=== PATIENT | male | born 1945 | race Caucasian/White ===

== ENCOUNTER 2016-09-07 13:41 | Emergency (ER) | payer MEDICARE, OTHER ==
[~2016-09-07] VITALS: Ht 172.7 cm; Wt 126.0 kg
[~2016-09-07 13:41] MED LIST: ACET-784 PO; ADV250 IH; ASPI81TA2 PO; BISA10S PR; CLOP75 PO; DIVA500T35 PO; FOLI1TAB15 PO; LOPE2 PO; MEDR10TA PO; METF500T4 PO; MILK OF MAGNESIA PO; MULTIVITAMIN PO; NAPR-58 PO; PARO20TA24 PO; RISP1 PO; SYNTHROID PO; THIA100 PO
[2016-09-07] MEDS ORDERED: DSS100 PO (15:27)
[2016-09-07] MEDS ORDERED: [UNRECOGNIZED DRUG - CODE] SQ (15:27)
[2016-09-07] MEDS ORDERED: GLIP5 PO (15:27)
[2016-09-07] MEDS ORDERED: CLOT15CR4 TP (15:27)
[2016-09-07] MEDS ORDERED: MAGN200T4 PO (15:27)
[2016-09-07] MEDS ORDERED: HYDR28.462 TP (15:27)
[2016-09-07] MEDS ORDERED: CYAN500 PO (15:27)
[2016-09-07] MEDS ORDERED: INSLAN SQ (15:27)
[2016-09-07] MEDS ORDERED: INSU100C14 SQ (15:27)
[2016-09-07] MEDS ORDERED: OMEP20 PO (15:31)
[2016-09-07] MEDS ORDERED: SIMV-260 PO (15:31)
[2016-09-07] MEDS ORDERED: LIRA0.6P SQ (15:31)
[2016-09-07] MEDS ORDERED: NIAC250C2 PO (15:31)
[2016-09-07] MEDS ORDERED: AMLO-512 PO (15:31)
[2016-09-07] MEDS ORDERED: LEVO150 PO (15:31)
[2016-09-07 15:35] VITALS: BP 110/67
[2016-09-07] MEDS ORDERED: HYDROCODONE/ACETAMINOPHEN 5-325 MG TABLET PO ONE (17:00)
[2016-09-07] MEDS ORDERED: LORazepam 2 MG TABLET PO ONE (17:00)
== END 2016-09-07 17:41 | disposition home or self-care (01) ==
LOC: EMS 13:43
DX: F41.9 Anxiety disorder, unspecified (principal); R51 Headache; F32.9 Major depressive disorder, single episode, unspecified; E11.9 Type 2 diabetes mellitus without complications; I10 Essential (primary) hypertension; E03.9 Hypothyroidism, unspecified; K21.9 Gastro-esophageal reflux disease without esophagitis; Z79.4 Long term (current) use of insulin
CPT/HCPCS: 82962; 99284

== ENCOUNTER 2022-06-06 00:38 | Emergency (ER) | payer MEDICARE, OTHER ==
[~2022-06-06] VITALS: Ht 172.7 cm; Wt 134.0 kg
[~2022-06-06 00:38] MED LIST changes: -ACET-784 PO; -ADV250 IH; +AMLO-258 PO; +ASPI-1198 PO; -ASPI81TA2 PO; -BISA10S PR; +BISA10SU11 PR; -CLOP75 PO; +CLOT15CR4 TP; +CYAN500T56 PO; +DIVA-112 PO; -DIVA500T35 PO; +DSS100 PO; -FOLI1TAB15 PO; +GLIP5TAB12 PO; +HYDR28.462 TP; +INSLAN SQ; +INSU100C14 SQ; +LEVO150 PO; +LIRA0.6P SQ; -LOPE2 PO; +MAGN200T4 PO; -MEDR10TA PO; +METF-1211 PO; -METF500T4 PO; -MILK OF MAGNESIA PO; -NAPR-58 PO; +NIAC250C16 PO; +OMEP20 PO; -PARO20TA24 PO; -RISP1 PO; +SIMV-260 PO; -SYNTHROID PO; -THIA100 PO; +[UNRECOGNIZED DRUG - CODE] SQ
[2022-06-06 01:49] LABS: BASOPHILS % (AUTO) 0.8 % (0.0-2.0); EOSINOPHILS % (AUTO) 6.6 % (1.0-6.0); HEMATOCRIT 38.8 % (41-53); HEMOGLOBIN 13.4 g/dL (13.5-17.5); LYMPHOCYTES # (AUTO) 1.3 K/uL (1.0-4.8); LYMPHOCYTES % (AUTO) 27.3 % (22.0-44.0); MEAN CORPUSCULAR HGB CONC 34.4 G/dL (31.0-37.0); MEAN CORPUSCULAR VOLUME 113 fL (80-100); MONOCYTES # (AUTO) 0.5 K/uL (0.1-1.0); MONOCYTES % (AUTO) 11.6 % (2.0-9.0); NEUTROPHILS # (AUTO) 2.5 K/uL (1.8-7.7); NEUTROPHILS % (AUTO) 53.7 % (40.0-70.0); PLATELET COUNT (AUTO) 119 K/uL (150-450); RED BLOOD CELL COUNT(AUTO) 3.42 MIL/uL (4.50-5.90)
[2022-06-06 01:57] LABS: ANION GAP -1 mmol/L (8-16); CALCIUM, TOTAL 8.7 mg/dL (8.8-10.5); CARBON DIOXIDE 39 mmol/L (22-29); CHLORIDE 96 mmol/L (98-107); CREATININE 0.91 mg/dL (0.60-1.30); GLUCOSE,RANDOM 155 mg/dL (70-110); SODIUM SERUM 134 mmol/L (136-145); UREA NITROGEN, BLOOD 11 mg/dL (7-18)
[2022-06-06 01:59] LABS: GLOMERULAR FILTR. RATE CALC > 60 mL/min (>60)
[2022-06-06 02:03] LABS: ALANINE AMINOTRANSFERASE 22 U/L (12-78); ALBUMIN 2.2 g/dL (3.4-5.0); ALKALINE PHOSPHATASE 175 U/L (46-116); ASPARTATE AMINOTRANSFERASE 28 U/L (15-37); BILIRUBIN,TOTAL 1.1 mg/dL (0.1-1.0); TOTAL PROTEIN, SERUM 6.5 g/dL (6.4-8.2)
[2022-06-06 02:11] LABS: B-TYPE NATRIURETIC PEPTIDE 94 pg/mL (0-100)
[2022-06-06 02:12] LABS: COVID AG,FIA SOURCE NASAL SWAB
[2022-06-06 05:31] LABS: ABG BASE EXCESS 11.4 mmol/L (-2.0-3.0); ABG CARBOXYHEMOGLOBIN 1.7 % (0.0-1.5); ABG HCO3 32.5 mmol/L (22.0-26.0); ABG METHEMOGLOBIN 0.4 % (0.0-1.5); ABG OXYGEN CONTENT 18.1 mL/dL (15.0-23.0); ABG OXYGEN SATURATION 92.7 % (95.0-98.0); ABG OXYHEMOGLOBIN 90.8 % (94.0-100.0); ABG PCO2 66 mmHg (35-45); ABG PH 7.366 (7.35-7.450); ABG TOTAL HEMOGLOBIN 14.2 G/dL (12.0-18.0); PO2, ARTERIAL BG 66.3 mmHg (75.0-83.0); SOURCE, BLOOD GAS ARTERIAL; TEMPERATURE, FAHRENHEIT, BG 98.5 FAHREN (96.0-98.6)
[2022-06-06 05:32] LABS: ABG A-A DIFF O2 26.9 mmHg (10-20.0); O2 DEVICE,BLOOD GAS NASAL CANNULA (ROOM AIR); SITE, BLOOD GAS LFT RADIAL
[2022-06-06] MEDS ORDERED: ALBUTEROL SULFATE HFA 90 MCG/PUFF 8 GM INHALER IH ONE (06:30)
[2022-06-06 06:40] VITALS: BP 133/57
== END 2022-06-06 09:02 | disposition home or self-care (01) ==
LOC: EMS 00:39
DX: F41.9 Anxiety disorder, unspecified (principal); J44.9 Chronic obstructive pulmonary disease, unspecified; G47.30 Sleep apnea, unspecified; F32.A Depression, unspecified; E11.9 Type 2 diabetes mellitus without complications; I10 Essential (primary) hypertension; E03.9 Hypothyroidism, unspecified; Z87.19 Personal history of other diseases of the digestive system; Z20.822 Contact with and (suspected) exposure to COVID-19
CPT/HCPCS: 36600; 71045; 80053; 82805; 83880; 84484; 85025; 93005; 94640; 99285; J3535; 36415-L1; 36415-TC

== ENCOUNTER 2022-10-21 18:58 | Inpatient (IN) | payer MEDICARE, OTHER ==
[~2022-10-21] VITALS: Ht 175.3 cm; Wt 117.0 kg
[2022-10-21] MEDS ORDERED: NALOXONE HCL 1 MG/ML 2 ML SYRINGE IVP ONE ×2 (19:00→20:45)
[2022-10-21] MEDS ORDERED: IOHEXOL 350 MG/ML 100 ML VIAL ONE (19:07)
[2022-10-21] MEDS ORDERED: SODIUM CHLORIDE 0.9% 100 ML ONE (19:07)
[2022-10-21] MEDS ORDERED: MAGN400T57 PO (19:08)
[2022-10-21] MEDS ORDERED: DIVA-111 PO (19:08)
[2022-10-21] MEDS ORDERED: DOCU-385 PO (19:08)
[2022-10-21] MEDS ORDERED: HEPA500018 SQ (19:08)
[2022-10-21] MEDS ORDERED: MULT-660 PO (19:08)
[2022-10-21] MEDS ORDERED: NIAC500C13 PO (19:08)
[2022-10-21] MEDS ORDERED: CLOT15CR5 TP (19:08)
[2022-10-21 19:29] LABS: BASOPHILS % (AUTO) 0.7 % (0.0-2.0); EOSINOPHILS % (AUTO) 2.8 % (1.0-6.0); HEMATOCRIT 42.3 % (41-53); HEMOGLOBIN 14.5 g/dL (13.5-17.5); LYMPHOCYTES # (AUTO) 0.8 K/uL (1.0-4.8); LYMPHOCYTES % (AUTO) 19.7 % (22.0-44.0); MEAN CORPUSCULAR HEMOGLOBIN 38.6 pg (26.0-34.0); MEAN CORPUSCULAR HGB CONC 34.4 G/dL (31.0-37.0); MEAN CORPUSCULAR VOLUME 112 fL (80-100); MONOCYTES # (AUTO) 0.4 K/uL (0.1-1.0); MONOCYTES % (AUTO) 9.6 % (2.0-9.0); NEUTROPHILS # (AUTO) 2.6 K/uL (1.8-7.7); NEUTROPHILS % (AUTO) 67.2 % (40.0-70.0); PLATELET COUNT (AUTO) 119 K/uL (150-450); RED BLOOD CELL COUNT(AUTO) 3.77 MIL/uL (4.50-5.90); RED CELL DISTRIBUTION WIDTH 15.8 % (11.5-14.5)
[2022-10-21 19:42] LABS: PHOSPHORUS 3.8 mg/dL (2.5-4.9)
[2022-10-21 19:44] LABS: INR 1.1 (0.9-1.1); PROTHROMBIN TIME 11.3 SEC (9.4-11.6)
[2022-10-21] MEDS ORDERED: LevETIRAcetam 1,000 MG in DEXTROSE 5%-WATER 100 ML IV ONE (19:45)
[2022-10-21 19:54] LABS: AMMONIA 82 umol/L (11-32)
[2022-10-21 19:56] LABS: COVID AG,FIA SOURCE NASOPHARYNGEAL
[2022-10-21] MEDS ORDERED: SODIUM CHLORIDE 0.9% 1,000 ML IV ONE (20:30)
[2022-10-21] MEDS ORDERED: LORazepam 2 MG/ML VIAL IVP ONE (20:30)
[2022-10-21 20:47] LABS: APPEARANCE,URINE CLEAR (CLEAR); BILIRUBIN,URINE NEGATIVE (NEGATIVE); GLUCOSE, URINE (UA) NEGATIVE (NEGATIVE); KETONES,URINE NEGATIVE (NEGATIVE); LEUKOCYTE ESTERASE ,URINE MODERATE (NEGATIVE); NITRATE,URINE NEGATIVE (NEGATIVE); OCCULT BLOOD,URINE NEGATIVE (NEGATIVE); PH,URINE 5.5 (5.0-8.0); PROTEIN,URINE 100-200,SEE CONFIRM mg/dL (NEGATIVE); UROBILINOGEN,URINE <=1.0 mg/dL (<=1.0)
[2022-10-21 20:54] LABS: AMPHET/METH SCREEN,URINE NEGATIVE (NEGATIVE); BARBITURATE SCREEN, URINE NEGATIVE (NEGATIVE); BENZODIAZEPINES SCREEN,URINE NEGATIVE (NEGATIVE); CANNABINOID SCREEN,URINE NEGATIVE (NEGATIVE); COCAINE SCREEN,URINE NEGATIVE (NEGATIVE); METHADONE SCREEN, URINE NEGATIVE (NEGATIVE); OPIATE SCREEN,URINE POSITIVE (NEGATIVE); PHENCYCLIDINE SCREEN,URINE NEGATIVE (NEGATIVE)
[2022-10-21] MEDS ORDERED: ETOMIDATE 2 MG/ML 10 ML VIAL IVP ONE (21:00)
[2022-10-21] MEDS ORDERED: ROCURONIUM BROMIDE 10 MG/ML 5 ML VIAL IVP ONE (21:00)
[2022-10-21 21:01] LABS: SULFOSALICYLIC ACID,URINE 2+ (Negative)
[2022-10-21 21:01] LABS: ALANINE AMINOTRANSFERASE 26 U/L (12-78); ALBUMIN 2.9 g/dL (3.4-5.0); ALKALINE PHOSPHATASE 259 U/L (46-116); ANION GAP 5 mmol/L (8-16); ASPARTATE AMINOTRANSFERASE 37 U/L (15-37); BILIRUBIN,TOTAL 1.5 mg/dL (0.1-1.0); CALCIUM, TOTAL 8.3 mg/dL (8.8-10.5); CARBON DIOXIDE 30 mmol/L (22-29); CHLORIDE 85 mmol/L (98-107); CREATININE 0.78 mg/dL (0.60-1.30); GLOMERULAR FILTR. RATE CALC > 60 mL/min (>60); GLUCOSE,RANDOM 219 mg/dL (70-110); POTASSIUM 3.6 mmol/L (3.5-5.1); TOTAL PROTEIN, SERUM 8.1 g/dL (6.4-8.2); UREA NITROGEN, BLOOD 10 mg/dL (7-18)
[2022-10-21 21:02] LABS: BACTERIA,URINE Many /HPF (None Seen); RBC,URINE 0-2 /HPF (0-2); SQUAMOUS EPITHELIAL CELL,UR Few /LPF (None Seen)
[2022-10-21 21:03] LABS: SODIUM SERUM 120 mmol/L (136-145)
[2022-10-21] MEDS ORDERED: ONDANSETRON HCL 4 MG/2 ML VIAL IVP PRN (21:15)
[2022-10-21] MEDS: PROPOFOL 1000 MG/ISO-OSM 100 ML IV PRN (21:29)
[2022-10-21] MEDS ORDERED: AZITHROMYCIN 500 MG/NS 250 ML IV ONE (21:30)
[2022-10-21] MEDS ORDERED: VANCOMYCIN 1GM/WATER(PEG/NADA) 200 ML IV ONE (21:30)
[2022-10-21] MEDS ORDERED: PIPERACILLIN/TAZO 3.375 GM/D5W 50 ML IV ONE (21:30)
[2022-10-21] MEDS ORDERED: DEXTROSE 50%-WATER 25 GM/50 ML SYRINGE IVP PRN (21:45)
[2022-10-21] MEDS ORDERED: BISACODYL 10 MG RECTAL RECTAL SUPPOSITORY PR PRN (21:45)
[2022-10-21] MEDS ORDERED: OXCA300T28 PO (21:59)
[2022-10-21] MEDS ORDERED: LACTULOSE 200 GM/300 ML RECTAL SOLUTION PR ONE (22:00)
[2022-10-21 22:12] LABS: ABG BASE EXCESS -3.7 mmol/L (-2.0-3.0); ABG HCO3 20.8 mmol/L (22.0-26.0); ABG METHEMOGLOBIN 0.3 % (0.0-1.5); ABG OXYHEMOGLOBIN 95.7 % (94.0-100.0); ABG PCO2 55 mmHg (35-45); ABG PH 7.247 (7.35-7.450); ABG TOTAL HEMOGLOBIN 14.8 G/dL (12.0-18.0); PO2, ARTERIAL BG 111.2 mmHg (75.0-83.0); SOURCE, BLOOD GAS ARTERIAL; TEMPERATURE, FAHRENHEIT, BG 97.6 FAHREN (96.0-98.6)
[2022-10-21 22:13] LABS: ABG A-A DIFF O2 256.6 mmHg (10-20.0); O2 DEVICE,BLOOD GAS VENTILATOR (ROOM AIR); PEEP,BG 5 cm H2O; SITE, BLOOD GAS LFT BRACHIAL; SPONTANEOUS VT, BG 503 ml; VT, ABG 500 ml
[2022-10-21 22:30] LABS: THYROID STIMULATING HORMONE 7.92 uIU/mL (0.36-3.74)
[2022-10-21 22:46] LABS: LACTIC ACID 2.7 mmol/L (0.4-2.0)
[2022-10-21] MEDS ORDERED: PANT-31 PO (22:54)
[2022-10-21] MEDS ORDERED: ALLO100T50 PO (22:54)
[2022-10-21] MEDS ORDERED: GARL1000 PO (22:54)
[2022-10-21] MEDS ORDERED: ZIPR80CA9 PO (22:54)
[2022-10-21] MEDS ORDERED: MAGN-169 PO (22:54)
[2022-10-21] MEDS ORDERED: NA P133E4 PR (22:54)
[2022-10-21] MEDS ORDERED: OXCA150T28 PO (22:54)
[2022-10-21] MEDS ORDERED: INSU100V SQ (22:54)
[2022-10-21] MEDS ORDERED: CALC-1105 PO (22:54)
[2022-10-21] MEDS ORDERED: PSYL575P22 PO (22:54)
[2022-10-21] MEDS ORDERED: ACET-66 PO (22:54)
[2022-10-21] MEDS ORDERED: ASCO500 PO (22:54)
[2022-10-21] MEDS ORDERED: MULT-248 PO (22:54)
[2022-10-21] MEDS ORDERED: VITA400T9 PO (22:54)
[2022-10-21] MEDS ORDERED: CHOL25TA4 PO (22:54)
[2022-10-21] MEDS ORDERED: CYAN250014 PO (22:54)
[2022-10-21] MEDS ORDERED: MELA5TAB21 PO (22:54)
[2022-10-21] MEDS ORDERED: LEVE500T8 PO (22:54)
[2022-10-21] MEDS ORDERED: ASPI-1444 PO (22:54)
[2022-10-21] MEDS ORDERED: HYDR-4723 PO (22:54)
[2022-10-21] MEDS ORDERED: LEVO112T4 PO (22:54)
[2022-10-22] MEDS ORDERED: SODIUM CHLORIDE 0.9% 250 ML IV ONE (00:30)
[2022-10-22] MEDS ORDERED: NOREPINEPHRINE 8 MG/D5%-WATER 250 ML IV ONE (00:35)
[2022-10-22 00:40] LABS: ANION GAP 7 mmol/L (8-16); CALCIUM, TOTAL 7.3 mg/dL (8.8-10.5); CARBON DIOXIDE 26 mmol/L (22-29); CHLORIDE 92 mmol/L (98-107); CREATININE 0.78 mg/dL (0.60-1.30); GLOMERULAR FILTR. RATE CALC > 60 mL/min (>60); GLUCOSE,RANDOM 220 mg/dL (70-110); POTASSIUM 4.6 mmol/L (3.5-5.1); SODIUM SERUM 125 mmol/L (136-145); UREA NITROGEN, BLOOD 10 mg/dL (7-18)
[2022-10-22] MEDS: NOREPINEPHRINE BITARTRATE 16 MG in DEXTROSE 5%-WATER 234 ML IV PRN ×2 (00:44→17:04)
[2022-10-22] MEDS: INSULIN GLARGINE,HUM.REC.ANLOG 100 UNITS/ML SQ SCH ×2 (00:50→20:54)
[2022-10-22 01:01] LABS: GLUCOSE,POINT OF CARE 191 MG/DL (70-110)
[2022-10-22] MEDS ORDERED: PIPERACILLIN/TAZO 3.375 GM/D5W 50 ML IV SCH (04:00)
[2022-10-22] MEDS: PROPOFOL 1000 MG/ISO-OSM 100 ML IV PRN ×5 (04:11→23:30)
[2022-10-22 04:19] LABS: ABG BASE EXCESS 0.9 mmol/L (-2.0-3.0); ABG CARBOXYHEMOGLOBIN 1.4 % (0.0-1.5); ABG HCO3 25.7 mmol/L (22.0-26.0); ABG METHEMOGLOBIN 0.2 % (0.0-1.5); ABG OXYGEN SATURATION 95.7 % (95.0-98.0); ABG OXYHEMOGLOBIN 94.2 % (94.0-100.0); ABG PCO2 34 mmHg (35-45); ABG PH 7.477 (7.35-7.450); ABG TOTAL HEMOGLOBIN 13.6 G/dL (12.0-18.0); PO2, ARTERIAL BG 71.8 mmHg (75.0-83.0); SOURCE, BLOOD GAS ARTERIAL; TEMPERATURE, FAHRENHEIT, BG 98.5 FAHREN (96.0-98.6)
[2022-10-22 04:20] LABS: ABG A-A DIFF O2 174.6 mmHg (10-20.0); O2 DEVICE,BLOOD GAS VENTILATOR (ROOM AIR); PEEP,BG 5 cm H2O; SITE, BLOOD GAS LFT BRACHIAL; VT, ABG 500 ml
[2022-10-22 04:21] LABS: SPONTANEOUS VT, BG 485 ml
[2022-10-22] MEDS ORDERED: *CLINICAL-CEFEPIME DOSING CLINICAL ONE (04:30)
[2022-10-22] MEDS ORDERED: SODIUM CHLORIDE 0.9% 1,000 ML IV SCH (04:45)
[2022-10-22 04:51] LABS: ANION GAP 11 mmol/L (8-16); CALCIUM, TOTAL 7.5 mg/dL (8.8-10.5); CARBON DIOXIDE 21 mmol/L (22-29); CHLORIDE 95 mmol/L (98-107); CREATININE 0.62 mg/dL (0.60-1.30); GLOMERULAR FILTR. RATE CALC > 60 mL/min (>60); GLUCOSE,RANDOM 194 mg/dL (70-110); POTASSIUM 4.3 mmol/L (3.5-5.1); SODIUM SERUM 127 mmol/L (136-145); UREA NITROGEN, BLOOD 9 mg/dL (7-18)
[2022-10-22 05:33] LABS: BASOPHILS % (AUTO) 0.4 % (0.0-2.0); EOSINOPHILS % (AUTO) 0.3 % (1.0-6.0); HEMATOCRIT 39.3 % (41-53); HEMOGLOBIN 13.4 g/dL (13.5-17.5); LYMPHOCYTES # (AUTO) 0.8 K/uL (1.0-4.8); LYMPHOCYTES % (AUTO) 6.8 % (22.0-44.0); MEAN CORPUSCULAR VOLUME 112 fL (80-100); MONOCYTES # (AUTO) 1.3 K/uL (0.1-1.0); MONOCYTES % (AUTO) 11.7 % (2.0-9.0); NEUTROPHILS # (AUTO) 9.1 K/uL (1.8-7.7); NEUTROPHILS % (AUTO) 80.8 % (40.0-70.0); PLATELET COUNT (AUTO) 164 K/uL (150-450); RED BLOOD CELL COUNT(AUTO) 3.51 MIL/uL (4.50-5.90); RED CELL DISTRIBUTION WIDTH 15.5 % (11.5-14.5)
[2022-10-22 06:00] VITALS: BP 113/48
[2022-10-22] MEDS: LEVOTHYROXINE SODIUM 150 MCG TABLET PO SCH (06:30)
[2022-10-22] MEDS ORDERED: MAGNESIUM SULFATE 2 GM/WATER 50 ML IV ONE (07:00)
[2022-10-22 08:00] VITALS: BP 90/45
[2022-10-22] MEDS ORDERED: VANCOMYCIN HCL 1.5 GM in DEXTROSE 5%-WATER 250 ML IV SCH (08:00)
[2022-10-22] MEDS: OMEPRAZOLE 20 MG CAPSULE PO SCH (09:00)
[2022-10-22] MEDS ORDERED: DIVALPROEX SODIUM 250 MG DR TABLET PO SCH (09:00)
[2022-10-22] MEDS: MAGNESIUM OXIDE 400 MG TABLET PO SCH (09:08)
[2022-10-22] MEDS: CEFEPIME HCL 2 GM in DEXTROSE 5%-WATER 50 ML IV SCH ×2 (09:09→16:12)
[2022-10-22] MEDS: DOCUSATE SODIUM 100 MG CAPSULE PO SCH (09:09)
[2022-10-22] MEDS: CLOTRIMAZOLE 1%/BETAMETH DIP 0.05% 15 GM CREAM TP SCH (09:09)
[2022-10-22] MEDS: ASPIRIN 81 MG CHEWABLE TABLET PO SCH (09:09)
[2022-10-22] MEDS: CHLORHEXIDINE GLUCONATE 0.12% 15 ML UDCUP ORAL RINSE MM SCH ×2 (09:09→20:52)
[2022-10-22] MEDS ORDERED: OXCA300T70 PO (10:54)
[2022-10-22 12:00] VITALS: BP 100/38
[2022-10-22 16:00] VITALS: BP 108/43
[2022-10-22] MEDS: VANCOMYCIN HCL 1.25 GM in DEXTROSE 5%-WATER 250 ML IV SCH (16:12)
[2022-10-22] MEDS ORDERED: FentaNYL CIT 1000MCG/0.9% NACL 100 ML IV PRN (17:30)
[2022-10-22] MEDS: LevETIRAcetam 1,000 MG in DEXTROSE 5%-WATER 100 ML IV SCH (17:44)
[2022-10-22 18:01] LABS: GLUCOSE,POINT OF CARE 115 MG/DL (70-110)
[2022-10-22 20:00] VITALS: BP 145/52
[2022-10-22] MEDS: SIMVASTATIN 20 MG TABLET PO SCH (20:52)
[2022-10-22] MEDS: NIACIN 500 MG PO SCH (21:00)
[2022-10-23] VITALS: BP 100/31
[2022-10-23] MEDS ORDERED: SODIUM CHLORIDE 0.9% 250 ML IV ONE ×2 (00:24→23:26)
[2022-10-23] MEDS: VANCOMYCIN HCL 1.25 GM in DEXTROSE 5%-WATER 250 ML IV SCH ×4 (00:27→23:28)
[2022-10-23] MEDS: HEPARIN SODIUM,PORCINE 5,000 UNITS/ML VIAL SQ SCH ×4 (00:27→23:28)
[2022-10-23] MEDS: CEFEPIME HCL 2 GM in DEXTROSE 5%-WATER 50 ML IV SCH ×4 (00:28→23:28)
[2022-10-23] MEDS: INSULIN LISPRO 100 UNITS/ML SQ PRN ×3 (00:29→12:53)
[2022-10-23 04:00] VITALS: BP 122/60
[2022-10-23 05:54] LABS: BASOPHILS % (AUTO) 0.3 % (0.0-2.0); EOSINOPHILS % (AUTO) 2.1 % (1.0-6.0); HEMATOCRIT 38.6 % (41-53); HEMOGLOBIN 13.2 g/dL (13.5-17.5); LYMPHOCYTES # (AUTO) 1.2 K/uL (1.0-4.8); LYMPHOCYTES % (AUTO) 10.5 % (22.0-44.0); MEAN CORPUSCULAR HEMOGLOBIN 38.1 pg (26.0-34.0); MEAN CORPUSCULAR HGB CONC 34.3 G/dL (31.0-37.0); MEAN CORPUSCULAR VOLUME 111 fL (80-100); MONOCYTES # (AUTO) 1.6 K/uL (0.1-1.0); MONOCYTES % (AUTO) 13.7 % (2.0-9.0); NEUTROPHILS # (AUTO) 8.5 K/uL (1.8-7.7); NEUTROPHILS % (AUTO) 73.4 % (40.0-70.0); PLATELET COUNT (AUTO) 200 K/uL (150-450); RED BLOOD CELL COUNT(AUTO) 3.47 MIL/uL (4.50-5.90); RED CELL DISTRIBUTION WIDTH 15.6 % (11.5-14.5)
[2022-10-23 06:25] LABS: ANION GAP 8 mmol/L (8-16); CALCIUM, TOTAL 7.8 mg/dL (8.8-10.5); CARBON DIOXIDE 26 mmol/L (22-29); CHLORIDE 100 mmol/L (98-107); CREATININE 0.65 mg/dL (0.60-1.30); GLOMERULAR FILTR. RATE CALC > 60 mL/min (>60); GLUCOSE,RANDOM 169 mg/dL (70-110); SODIUM SERUM 134 mmol/L (136-145); UREA NITROGEN, BLOOD 7 mg/dL (7-18); VANCOMYCIN,RANDOM 25.3 mcg/mL (25.0-50.0)
[2022-10-23] MEDS: LevETIRAcetam 1,000 MG in DEXTROSE 5%-WATER 100 ML IV SCH ×2 (06:29→18:21)
[2022-10-23] MEDS: LEVOTHYROXINE SODIUM 150 MCG TABLET PO SCH (06:30)
[2022-10-23] MEDS: PROPOFOL 1000 MG/ISO-OSM 100 ML IV PRN ×3 (06:31→16:33)
[2022-10-23 07:01] LABS: GLUCOSE,POINT OF CARE 151 MG/DL (70-110)
[2022-10-23 07:01] LABS: GLUCOSE,POINT OF CARE 158 MG/DL (70-110)
[2022-10-23 08:00] VITALS: BP 121/40
[2022-10-23] MEDS ORDERED: FUROSEMIDE 20 MG/2 ML VIAL IVP ONE (08:00)
[2022-10-23] MEDS: CLOTRIMAZOLE 1%/BETAMETH DIP 0.05% 15 GM CREAM TP SCH (08:14)
[2022-10-23] MEDS: CHLORHEXIDINE GLUCONATE 0.12% 15 ML UDCUP ORAL RINSE MM SCH ×2 (08:15→20:49)
[2022-10-23] MEDS: ASPIRIN 81 MG CHEWABLE TABLET PO SCH (08:15)
[2022-10-23] MEDS: DOCUSATE SODIUM 100 MG CAPSULE PO SCH (08:17)
[2022-10-23] MEDS: MAGNESIUM OXIDE 400 MG TABLET PO SCH (08:17)
[2022-10-23] MEDS: OMEPRAZOLE 20 MG CAPSULE PO SCH (08:18)
[2022-10-23] MEDS: CIPROFLOXACIN HCL 0.3% 3.5 GM OPHTHALMIC OINTMENT OU SCH ×2 (10:00→20:49)
[2022-10-23 12:00] VITALS: BP 113/41
[2022-10-23 12:26] LABS: GLUCOSE,POINT OF CARE 159 MG/DL (70-110)
[2022-10-23 16:00] VITALS: BP 122/46
[2022-10-23 18:06] LABS: GLUCOSE,POINT OF CARE 144 MG/DL (70-110)
[2022-10-23 20:00] VITALS: BP 127/52
[2022-10-23] MEDS: SIMVASTATIN 20 MG TABLET PO SCH (20:49)
[2022-10-23] MEDS: INSULIN GLARGINE,HUM.REC.ANLOG 100 UNITS/ML SQ SCH (20:51)
[2022-10-23] MEDS: NIACIN 500 MG PO SCH (21:00)
[2022-10-24] VITALS: BP 145/84
[2022-10-24] MEDS: INSULIN LISPRO 100 UNITS/ML SQ PRN ×2 (00:05→18:14)
[2022-10-24] MEDS: PROPOFOL 1000 MG/ISO-OSM 100 ML IV PRN ×2 (02:10→12:29)
[2022-10-24 02:46] LABS: GLUCOSE,POINT OF CARE 145 MG/DL (70-110)
[2022-10-24] MEDS: NOREPINEPHRINE BITARTRATE 16 MG in DEXTROSE 5%-WATER 234 ML IV PRN (03:34)
[2022-10-24 04:00] VITALS: BP 112/48
[2022-10-24] MEDS: LEVOTHYROXINE SODIUM 150 MCG TABLET PO SCH (05:53)
[2022-10-24] MEDS: LevETIRAcetam 1,000 MG in DEXTROSE 5%-WATER 100 ML IV SCH ×2 (05:54→18:12)
[2022-10-24 06:19] LABS: ANION GAP 5 mmol/L (8-16); CALCIUM, TOTAL 7.8 mg/dL (8.8-10.5); CARBON DIOXIDE 29 mmol/L (22-29); CHLORIDE 100 mmol/L (98-107); CREATININE 0.72 mg/dL (0.60-1.30); GLOMERULAR FILTR. RATE CALC > 60 mL/min (>60); GLUCOSE,RANDOM 128 mg/dL (70-110); POTASSIUM 3.4 mmol/L (3.5-5.1); SODIUM SERUM 134 mmol/L (136-145); UREA NITROGEN, BLOOD 9 mg/dL (7-18)
[2022-10-24 08:00] VITALS: BP 119/46
[2022-10-24] MEDS: MAGNESIUM OXIDE 400 MG TABLET PO SCH (09:17)
[2022-10-24] MEDS: OMEPRAZOLE 20 MG CAPSULE PO SCH (09:17)
[2022-10-24] MEDS: ASPIRIN 81 MG CHEWABLE TABLET PO SCH (09:17)
[2022-10-24] MEDS: HEPARIN SODIUM,PORCINE 5,000 UNITS/ML VIAL SQ SCH ×2 (09:18→16:57)
[2022-10-24] MEDS: DOCUSATE SODIUM 100 MG CAPSULE PO SCH (09:18)
[2022-10-24] MEDS: CEFEPIME HCL 2 GM in DEXTROSE 5%-WATER 50 ML IV SCH ×2 (09:18→16:57)
[2022-10-24] MEDS: CHLORHEXIDINE GLUCONATE 0.12% 15 ML UDCUP ORAL RINSE MM SCH ×2 (09:18→21:06)
[2022-10-24] MEDS: CLOTRIMAZOLE 1%/BETAMETH DIP 0.05% 15 GM CREAM TP SCH (09:19)
[2022-10-24] MEDS: CIPROFLOXACIN HCL 0.3% 3.5 GM OPHTHALMIC OINTMENT OU SCH ×2 (09:19→21:05)
[2022-10-24] MEDS: VANCOMYCIN HCL 1.25 GM in DEXTROSE 5%-WATER 250 ML IV SCH ×2 (09:19→16:57)
[2022-10-24] MEDS ORDERED: DEXMEDETOMIDINE HCL 400 MCG in SODIUM CHLORIDE 0.9% 96 ML IV PRN (09:45)
[2022-10-24 10:31] LABS: GLUCOSE,POINT OF CARE 120 MG/DL (70-110)
[2022-10-24] MEDS ORDERED: POTASSIUM CHL 10 MEQ/WATER 50 ML IV PRN (11:45)
[2022-10-24] MEDS ORDERED: POTASSIUM CHLORIDE 20 MEQ ER TABLET PO PRN (11:45)
[2022-10-24 12:00] VITALS: BP 95/38
[2022-10-24] MEDS: POTASSIUM CHL 10 MEQ/WATER 50 ML IV SCH ×2 (12:27→13:54)
[2022-10-24 12:59] LABS: PHOSPHORUS 2.3 mg/dL (2.5-4.9)
[2022-10-24 13:36] LABS: GLUCOSE,POINT OF CARE 137 MG/DL (70-110)
[2022-10-24 16:00] VITALS: BP 123/49
[2022-10-24 16:17] LABS: ABG CARBOXYHEMOGLOBIN 1.8 % (0.0-1.5); ABG HCO3 25.5 mmol/L (22.0-26.0); ABG METHEMOGLOBIN 0.3 % (0.0-1.5); ABG OXYGEN CONTENT 18.3 mL/dL (15.0-23.0); ABG OXYGEN SATURATION 96.3 % (95.0-98.0); ABG OXYHEMOGLOBIN 94.3 % (94.0-100.0); ABG PCO2 37 mmHg (35-45); ABG PH 7.451 (7.35-7.450); ABG TOTAL HEMOGLOBIN 13.8 G/dL (12.0-18.0); PO2, ARTERIAL BG 79.5 mmHg (75.0-83.0); SOURCE, BLOOD GAS ARTERIAL; TEMPERATURE, FAHRENHEIT, BG 97.4 FAHREN (96.0-98.6)
[2022-10-24 16:18] LABS: O2 DEVICE,BLOOD GAS VENTILATOR (ROOM AIR); SITE, BLOOD GAS RT RADIAL
[2022-10-24 16:19] LABS: PEEP,BG 5 cm H2O; PRESSURE SUPPORT, BG 8 cm H2O; SPONTANEOUS VT, BG 412 ml; VENT MODE, BG Press. Support Vent. (ROOM AIR)
[2022-10-24] MEDS ORDERED: MAGNESIUM SULFATE 2 GM/WATER 50 ML IV ONE (18:00)
[2022-10-24 19:41] LABS: GLUCOSE,POINT OF CARE 142 MG/DL (70-110)
[2022-10-24 20:00] VITALS: BP 140/68
[2022-10-24 20:40] LABS: CREATININE,URINE RANDOM 23.8 mg/dL (30.0-125.0)
[2022-10-24] MEDS: ETHYL ALCOHOL 62% ANTISEPTIC NASAL SANITIZER 0.6 ML AMPUL NASAL SCH (21:05)
[2022-10-24] MEDS: NIACIN 500 MG PO SCH (21:06)
[2022-10-24] MEDS: SIMVASTATIN 20 MG TABLET PO SCH (21:06)
[2022-10-24] MEDS: INSULIN GLARGINE,HUM.REC.ANLOG 100 UNITS/ML SQ SCH (21:11)
[2022-10-25] VITALS: BP 118/49
[2022-10-25] MEDS: HEPARIN SODIUM,PORCINE 5,000 UNITS/ML VIAL SQ SCH ×4 (00:23→23:31)
[2022-10-25] MEDS: CEFEPIME HCL 2 GM in DEXTROSE 5%-WATER 50 ML IV SCH ×3 (00:23→17:15)
[2022-10-25] MEDS: VANCOMYCIN HCL 1.25 GM in DEXTROSE 5%-WATER 250 ML IV SCH (00:23)
[2022-10-25 04:00] VITALS: BP 102/43
[2022-10-25 06:01] LABS: ANION GAP 7 mmol/L (8-16); CALCIUM, TOTAL 7.9 mg/dL (8.8-10.5); CARBON DIOXIDE 24 mmol/L (22-29); CHLORIDE 103 mmol/L (98-107); GLOMERULAR FILTR. RATE CALC > 60 mL/min (>60); GLUCOSE,RANDOM 147 mg/dL (70-110); POTASSIUM 3.9 mmol/L (3.5-5.1); SODIUM SERUM 134 mmol/L (136-145); UREA NITROGEN, BLOOD 16 mg/dL (7-18); VANCOMYCIN,RANDOM 41.3 mcg/mL (25.0-50.0)
[2022-10-25] MEDS: LevETIRAcetam 1,000 MG in DEXTROSE 5%-WATER 100 ML IV SCH ×2 (06:28→17:15)
[2022-10-25] MEDS: LEVOTHYROXINE SODIUM 150 MCG TABLET PO SCH (06:28)
[2022-10-25] MEDS ORDERED: VANCOMYCIN 1GM/WATER(PEG/NADA) 200 ML IV PRN (07:30)
[2022-10-25 08:00] VITALS: BP 119/49
[2022-10-25 08:21] LABS: GLUCOSE,POINT OF CARE 102 MG/DL (70-110)
[2022-10-25 08:21] LABS: GLUCOSE,POINT OF CARE 124 MG/DL (70-110)
[2022-10-25] MEDS: ASPIRIN 81 MG CHEWABLE TABLET PO SCH (08:28)
[2022-10-25] MEDS: ETHYL ALCOHOL 62% ANTISEPTIC NASAL SANITIZER 0.6 ML AMPUL NASAL SCH ×2 (08:28→20:33)
[2022-10-25] MEDS: CHLORHEXIDINE GLUCONATE 0.12% 15 ML UDCUP ORAL RINSE MM SCH ×2 (08:29→20:33)
[2022-10-25] MEDS: OMEPRAZOLE 20 MG CAPSULE PO SCH (08:29)
[2022-10-25] MEDS: DOCUSATE SODIUM 100 MG CAPSULE PO SCH (08:29)
[2022-10-25] MEDS: PROPOFOL 1000 MG/ISO-OSM 100 ML IV PRN (08:30)
[2022-10-25] MEDS: CLOTRIMAZOLE 1%/BETAMETH DIP 0.05% 15 GM CREAM TP SCH (08:30)
[2022-10-25] MEDS: CIPROFLOXACIN HCL 0.3% 3.5 GM OPHTHALMIC OINTMENT OU SCH ×2 (08:31→20:34)
[2022-10-25 09:11] LABS: PHOSPHORUS 2.1 mg/dL (2.5-4.9)
[2022-10-25 09:37] LABS: BASOPHILS % (AUTO) 0.6 % (0.0-2.0); EOSINOPHILS % (AUTO) 3.1 % (1.0-6.0); HEMATOCRIT 38.8 % (41-53); HEMOGLOBIN 13.2 g/dL (13.5-17.5); LYMPHOCYTES # (AUTO) 1.7 K/uL (1.0-4.8); LYMPHOCYTES % (AUTO) 22.6 % (22.0-44.0); MEAN CORPUSCULAR HEMOGLOBIN 38.6 pg (26.0-34.0); MEAN CORPUSCULAR VOLUME 113 fL (80-100); MONOCYTES % (AUTO) 13.2 % (2.0-9.0); NEUTROPHILS # (AUTO) 4.5 K/uL (1.8-7.7); NEUTROPHILS % (AUTO) 60.5 % (40.0-70.0); PLATELET COUNT (AUTO) 133 K/uL (150-450); RED BLOOD CELL COUNT(AUTO) 3.42 MIL/uL (4.50-5.90)
[2022-10-25 12:00] VITALS: BP 102/45
[2022-10-25 14:41] LABS: GLUCOSE,POINT OF CARE 130 MG/DL (70-110)
[2022-10-25 16:00] VITALS: BP 112/52
[2022-10-25] MEDS ORDERED: SODIUM CHLORIDE 0.9% 500 ML IV ONE (17:15)
[2022-10-25 20:00] VITALS: BP 126/57
[2022-10-25 20:06] LABS: GLUCOSE,POINT OF CARE 124 MG/DL (70-110)
[2022-10-25] MEDS: SIMVASTATIN 20 MG TABLET PO SCH (20:33)
[2022-10-25] MEDS: NIACIN 500 MG PO SCH (20:33)
[2022-10-25] MEDS: INSULIN GLARGINE,HUM.REC.ANLOG 100 UNITS/ML SQ SCH (20:52)
[2022-10-25 21:11] LABS: GLUCOSE,POINT OF CARE 118 MG/DL (70-110)
[2022-10-26] VITALS: BP 124/52
[2022-10-26 00:16] LABS: GLUCOSE,POINT OF CARE 101 MG/DL (70-110)
[2022-10-26] MEDS: CEFEPIME HCL 2 GM in DEXTROSE 5%-WATER 50 ML IV SCH ×3 (00:47→17:23)
[2022-10-26] MEDS: PROPOFOL 1000 MG/ISO-OSM 100 ML IV PRN (01:02)
[2022-10-26] MEDS ORDERED: SODIUM CHLORIDE 0.9% 250 ML IV ONE (02:52)
[2022-10-26 04:00] VITALS: BP 112/47
[2022-10-26 05:56] LABS: BASOPHILS % (AUTO) 0.5 % (0.0-2.0); HEMOGLOBIN 12.2 g/dL (13.5-17.5); LYMPHOCYTES # (AUTO) 1.3 K/uL (1.0-4.8); LYMPHOCYTES % (AUTO) 27.7 % (22.0-44.0); MEAN CORPUSCULAR HEMOGLOBIN 39.1 pg (26.0-34.0); MEAN CORPUSCULAR HGB CONC 34.9 G/dL (31.0-37.0); MEAN CORPUSCULAR VOLUME 112 fL (80-100); MONOCYTES # (AUTO) 0.6 K/uL (0.1-1.0); MONOCYTES % (AUTO) 13.2 % (2.0-9.0); NEUTROPHILS # (AUTO) 2.4 K/uL (1.8-7.7); NEUTROPHILS % (AUTO) 53.6 % (40.0-70.0); PLATELET COUNT (AUTO) 112 K/uL (150-450); RED BLOOD CELL COUNT(AUTO) 3.12 MIL/uL (4.50-5.90); RED CELL DISTRIBUTION WIDTH 15.9 % (11.5-14.5)
[2022-10-26] MEDS: LevETIRAcetam 1,000 MG in DEXTROSE 5%-WATER 100 ML IV SCH ×2 (06:20→18:18)
[2022-10-26] MEDS: LEVOTHYROXINE SODIUM 150 MCG TABLET PO SCH (06:20)
[2022-10-26 06:22] LABS: CALCIUM, TOTAL 8.1 mg/dL (8.8-10.5); CREATININE 1.32 mg/dL (0.60-1.30); MAGNESIUM 2.2 mg/dL (1.80-2.40); PHOSPHORUS 3.1 mg/dL (2.5-4.9); POTASSIUM 3.5 mmol/L (3.5-5.1); VANCOMYCIN,RANDOM 24.8 mcg/mL (25.0-50.0)
[2022-10-26 06:37] LABS: GLUCOSE,POINT OF CARE 111 MG/DL (70-110)
[2022-10-26 08:00] VITALS: BP 121/55
[2022-10-26] MEDS: HEPARIN SODIUM,PORCINE 5,000 UNITS/ML VIAL SQ SCH ×2 (08:03→17:22)
[2022-10-26] MEDS: DOCUSATE SODIUM 100 MG CAPSULE PO SCH (08:03)
[2022-10-26] MEDS: ASPIRIN 81 MG CHEWABLE TABLET PO SCH (08:03)
[2022-10-26] MEDS: OMEPRAZOLE 20 MG CAPSULE PO SCH (08:04)
[2022-10-26] MEDS: CLOTRIMAZOLE 1%/BETAMETH DIP 0.05% 15 GM CREAM TP SCH (08:04)
[2022-10-26] MEDS: CHLORHEXIDINE GLUCONATE 0.12% 15 ML UDCUP ORAL RINSE MM SCH ×2 (08:04→20:58)
[2022-10-26] MEDS: ETHYL ALCOHOL 62% ANTISEPTIC NASAL SANITIZER 0.6 ML AMPUL NASAL SCH ×2 (08:04→20:58)
[2022-10-26] MEDS: CIPROFLOXACIN HCL 0.3% 3.5 GM OPHTHALMIC OINTMENT OU SCH ×2 (08:05→20:59)
[2022-10-26 12:00] VITALS: BP 120/49
[2022-10-26 15:46] LABS: GLUCOSE,POINT OF CARE 129 MG/DL (70-110)
[2022-10-26 16:00] VITALS: BP 126/54
[2022-10-26 17:06] LABS: ALBUMIN URINE (ELP) Note: %
[2022-10-26 17:51] LABS: ABG HCO3 25.4 mmol/L (22.0-26.0); ABG METHEMOGLOBIN 0.3 % (0.0-1.5); ABG OXYGEN CONTENT 17.1 mL/dL (15.0-23.0); ABG OXYGEN SATURATION 94.5 % (95.0-98.0); ABG OXYHEMOGLOBIN 93.3 % (94.0-100.0); ABG PCO2 37 mmHg (35-45); ABG PH 7.451 (7.35-7.450); PO2, ARTERIAL BG 67.7 mmHg (75.0-83.0); SITE, BLOOD GAS LFT RADIAL; SOURCE, BLOOD GAS ARTERIAL
[2022-10-26 17:52] LABS: ABG A-A DIFF O2 103.9 mmHg (10-20.0); O2 DEVICE,BLOOD GAS VENTILATOR (ROOM AIR); PEEP,BG 5 cm H2O; PRESSURE SUPPORT, BG 10 cm H2O; SPONTANEOUS VT, BG 420 ml; VENT MODE, BG Press. Support Vent. (ROOM AIR)
[2022-10-26 19:26] LABS: GLUCOSE,POINT OF CARE 137 MG/DL (70-110)
[2022-10-26 20:00] VITALS: BP 142/63
[2022-10-26] MEDS: NIACIN 500 MG PO SCH (20:58)
[2022-10-26] MEDS: SIMVASTATIN 20 MG TABLET PO SCH (20:59)
[2022-10-26] MEDS: INSULIN GLARGINE,HUM.REC.ANLOG 100 UNITS/ML SQ SCH (21:00)
[2022-10-27] VITALS: BP 130/57
[2022-10-27] MEDS ORDERED: SODIUM CHLORIDE 0.9% 250 ML IV ONE (00:31)
[2022-10-27] MEDS: CEFEPIME HCL 2 GM in DEXTROSE 5%-WATER 50 ML IV SCH ×3 (00:35→17:47)
[2022-10-27] MEDS: HEPARIN SODIUM,PORCINE 5,000 UNITS/ML VIAL SQ SCH ×3 (00:36→17:47)
[2022-10-27 01:41] LABS: GLUCOSE,POINT OF CARE 105 MG/DL (70-110)
[2022-10-27 04:00] VITALS: BP 115/48
[2022-10-27] MEDS: PROPOFOL 1000 MG/ISO-OSM 100 ML IV PRN (04:25)
[2022-10-27] MEDS: LEVOTHYROXINE SODIUM 150 MCG TABLET PO SCH (05:49)
[2022-10-27] MEDS: LevETIRAcetam 1,000 MG in DEXTROSE 5%-WATER 100 ML IV SCH ×2 (05:49→17:47)
[2022-10-27 06:24] LABS: CALCIUM, TOTAL 8.5 mg/dL (8.8-10.5); CREATININE 1.23 mg/dL (0.60-1.30); VANCOMYCIN,RANDOM 19.6 mcg/mL (25.0-50.0)
[2022-10-27 07:11] LABS: GLUCOSE,POINT OF CARE 130 MG/DL (70-110)
[2022-10-27 08:00] VITALS: BP 124/50
[2022-10-27] MEDS: ASPIRIN 81 MG CHEWABLE TABLET PO SCH (08:35)
[2022-10-27] MEDS: OMEPRAZOLE 20 MG CAPSULE PO SCH (08:35)
[2022-10-27] MEDS: ETHYL ALCOHOL 62% ANTISEPTIC NASAL SANITIZER 0.6 ML AMPUL NASAL SCH ×2 (08:35→21:24)
[2022-10-27] MEDS: CHLORHEXIDINE GLUCONATE 0.12% 15 ML UDCUP ORAL RINSE MM SCH ×2 (08:35→21:24)
[2022-10-27] MEDS: CIPROFLOXACIN HCL 0.3% 3.5 GM OPHTHALMIC OINTMENT OU SCH ×2 (08:36→21:24)
[2022-10-27] MEDS: DOCUSATE SODIUM 100 MG CAPSULE PO SCH (08:36)
[2022-10-27] MEDS: CLOTRIMAZOLE 1%/BETAMETH DIP 0.05% 15 GM CREAM TP SCH (08:38)
[2022-10-27] MEDS ORDERED: VANCOMYCIN 1GM/WATER(PEG/NADA) 200 ML IV ONE (09:15)
[2022-10-27 12:00] VITALS: BP 120/46
[2022-10-27 12:36] LABS: GLUCOSE,POINT OF CARE 133 MG/DL (70-110)
[2022-10-27 16:00] VITALS: BP 127/48
[2022-10-27 18:22] LABS: GLUCOSE,POINT OF CARE 134 MG/DL (70-110)
[2022-10-27 20:00] VITALS: BP 136/62
[2022-10-27] MEDS: SIMVASTATIN 20 MG TABLET PO SCH (21:25)
[2022-10-27] MEDS: NIACIN 500 MG PO SCH (21:25)
[2022-10-27 21:56] LABS: GLUCOSE,POINT OF CARE 137 MG/DL (70-110)
[2022-10-27] MEDS: INSULIN GLARGINE,HUM.REC.ANLOG 100 UNITS/ML SQ SCH (23:23)
[2022-10-28] VITALS: BP 135/57
[2022-10-28] MEDS: HEPARIN SODIUM,PORCINE 5,000 UNITS/ML VIAL SQ SCH ×3 (01:00→16:15)
[2022-10-28] MEDS: CEFEPIME HCL 2 GM in DEXTROSE 5%-WATER 50 ML IV SCH ×2 (01:00→12:37)
[2022-10-28 01:21] LABS: GLUCOSE,POINT OF CARE 126 MG/DL (70-110)
[2022-10-28 04:00] VITALS: BP 134/54
[2022-10-28] MEDS: PROPOFOL 1000 MG/ISO-OSM 100 ML IV PRN ×2 (05:14→22:56)
[2022-10-28 05:46] LABS: GLUCOSE,POINT OF CARE 146 MG/DL (70-110)
[2022-10-28] MEDS: LevETIRAcetam 1,000 MG in DEXTROSE 5%-WATER 100 ML IV SCH ×2 (06:23→17:44)
[2022-10-28] MEDS: INSULIN LISPRO 100 UNITS/ML SQ PRN ×2 (06:24→18:02)
[2022-10-28 06:36] LABS: ANION GAP 7 mmol/L (8-16); CALCIUM, TOTAL 8.4 mg/dL (8.8-10.5); CARBON DIOXIDE 27 mmol/L (22-29); CHLORIDE 105 mmol/L (98-107); CREATININE 1.17 mg/dL (0.60-1.30); GLOMERULAR FILTR. RATE CALC > 60 mL/min (>60); GLUCOSE,RANDOM 146 mg/dL (70-110); POTASSIUM 3.7 mmol/L (3.5-5.1); SODIUM SERUM 139 mmol/L (136-145); UREA NITROGEN, BLOOD 27 mg/dL (7-18); VANCOMYCIN,RANDOM 19.5 mcg/mL (25.0-50.0)
[2022-10-28] MEDS: LEVOTHYROXINE SODIUM 150 MCG TABLET PO SCH (06:54)
[2022-10-28 08:00] VITALS: BP 117/50
[2022-10-28] MEDS: CHLORHEXIDINE GLUCONATE 0.12% 15 ML UDCUP ORAL RINSE MM SCH ×2 (08:28→23:10)
[2022-10-28] MEDS: ETHYL ALCOHOL 62% ANTISEPTIC NASAL SANITIZER 0.6 ML AMPUL NASAL SCH ×2 (08:29→22:49)
[2022-10-28] MEDS: ASPIRIN 81 MG CHEWABLE TABLET PO SCH (08:29)
[2022-10-28] MEDS: OMEPRAZOLE 20 MG CAPSULE PO SCH (08:29)
[2022-10-28] MEDS: CIPROFLOXACIN HCL 0.3% 3.5 GM OPHTHALMIC OINTMENT OU SCH ×2 (08:29→23:11)
[2022-10-28] MEDS: DOCUSATE SODIUM 100 MG CAPSULE PO SCH (08:30)
[2022-10-28] MEDS ORDERED: VANCOMYCIN HCL 1 GM/D5% WATER 200 ML IV ONE (08:30)
[2022-10-28] MEDS: CLOTRIMAZOLE 1%/BETAMETH DIP 0.05% 15 GM CREAM TP SCH (08:30)
[2022-10-28 12:00] VITALS: BP 126/52
[2022-10-28 16:00] VITALS: BP 99/40
[2022-10-28 20:00] VITALS: BP 119/45
[2022-10-28 20:31] LABS: GLUCOSE,POINT OF CARE 140 MG/DL (70-110)
[2022-10-28 20:31] LABS: GLUCOSE,POINT OF CARE 152 MG/DL (70-110)
[2022-10-28] MEDS: NIACIN 500 MG PO SCH (22:50)
[2022-10-28] MEDS: SIMVASTATIN 20 MG TABLET PO SCH (22:50)
[2022-10-28] MEDS: INSULIN GLARGINE,HUM.REC.ANLOG 100 UNITS/ML SQ SCH (23:14)
[2022-10-29] VITALS: BP 117/50
[2022-10-29] MEDS: CEFEPIME HCL 2 GM in DEXTROSE 5%-WATER 50 ML IV SCH ×2 (01:58→12:50)
[2022-10-29] MEDS: HEPARIN SODIUM,PORCINE 5,000 UNITS/ML VIAL SQ SCH ×4 (01:58→23:29)
[2022-10-29 04:00] VITALS: BP 116/49
[2022-10-29 06:01] LABS: GLUCOSE,POINT OF CARE 134 MG/DL (70-110)
[2022-10-29 06:46] LABS: CALCIUM, TOTAL 8.2 mg/dL (8.8-10.5); CREATININE 1.19 mg/dL (0.60-1.30); POTASSIUM 3.3 mmol/L (3.5-5.1)
[2022-10-29] MEDS: LevETIRAcetam 1,000 MG in DEXTROSE 5%-WATER 100 ML IV SCH ×2 (06:46→17:32)
[2022-10-29] MEDS: LEVOTHYROXINE SODIUM 150 MCG TABLET PO SCH (06:47)
[2022-10-29 06:51] LABS: BASOPHILS % (AUTO) 0.8 % (0.0-2.0); EOSINOPHILS % (AUTO) 3.7 % (1.0-6.0); HEMATOCRIT 33.7 % (41-53); HEMOGLOBIN 11.9 g/dL (13.5-17.5); LYMPHOCYTES # (AUTO) 1.7 K/uL (1.0-4.8); LYMPHOCYTES % (AUTO) 31.2 % (22.0-44.0); MEAN CORPUSCULAR HEMOGLOBIN 40.1 pg (26.0-34.0); MEAN CORPUSCULAR HGB CONC 35.2 G/dL (31.0-37.0); MEAN CORPUSCULAR VOLUME 114 fL (80-100); MONOCYTES # (AUTO) 0.7 K/uL (0.1-1.0); MONOCYTES % (AUTO) 12.8 % (2.0-9.0); NEUTROPHILS # (AUTO) 2.8 K/uL (1.8-7.7); NEUTROPHILS % (AUTO) 51.5 % (40.0-70.0); PLATELET COUNT (AUTO) 103 K/uL (150-450); RED BLOOD CELL COUNT(AUTO) 2.96 MIL/uL (4.50-5.90); RED CELL DISTRIBUTION WIDTH 15.3 % (11.5-14.5)
[2022-10-29 08:00] VITALS: BP 118/48
[2022-10-29] MEDS: PROPOFOL 1000 MG/ISO-OSM 100 ML IV PRN ×2 (08:23→17:18)
[2022-10-29] MEDS ORDERED: SODIUM CHLORIDE 0.9% 250 ML IV ONE (08:44)
[2022-10-29] MEDS: VANCOMYCIN HCL 1 GM/D5% WATER 200 ML IV SCH (08:50)
[2022-10-29] MEDS: CHLORHEXIDINE GLUCONATE 0.12% 15 ML UDCUP ORAL RINSE MM SCH ×2 (08:51→21:06)
[2022-10-29] MEDS: ETHYL ALCOHOL 62% ANTISEPTIC NASAL SANITIZER 0.6 ML AMPUL NASAL SCH ×2 (08:51→21:06)
[2022-10-29] MEDS: CLOTRIMAZOLE 1%/BETAMETH DIP 0.05% 15 GM CREAM TP SCH (08:51)
[2022-10-29] MEDS: OMEPRAZOLE 20 MG CAPSULE PO SCH (08:51)
[2022-10-29] MEDS: DOCUSATE SODIUM 100 MG CAPSULE PO SCH (08:51)
[2022-10-29] MEDS: ASPIRIN 81 MG CHEWABLE TABLET PO SCH (08:51)
[2022-10-29] MEDS: CIPROFLOXACIN HCL 0.3% 3.5 GM OPHTHALMIC OINTMENT OU SCH ×2 (08:52→21:07)
[2022-10-29] MEDS ORDERED: POTASSIUM CHLORIDE 10% 40 MEQ/30 ML LIQUID UDCUP NG PRN (09:15)
[2022-10-29 10:30] LABS: GLUCOSE,POINT OF CARE 133 MG/DL (70-110)
[2022-10-29] MEDS: INSULIN LISPRO 100 UNITS/ML SQ PRN (11:36)
[2022-10-29 12:00] VITALS: BP 129/57
[2022-10-29 16:00] VITALS: BP 137/55
[2022-10-29 20:00] VITALS: BP 133/59
[2022-10-29 20:36] LABS: GLUCOSE,POINT OF CARE 117 MG/DL (70-110)
[2022-10-29 20:36] LABS: GLUCOSE,POINT OF CARE 147 MG/DL (70-110)
[2022-10-29] MEDS: SIMVASTATIN 20 MG TABLET PO SCH (21:06)
[2022-10-29] MEDS: INSULIN GLARGINE,HUM.REC.ANLOG 100 UNITS/ML SQ SCH (21:07)
[2022-10-29] MEDS: NIACIN 500 MG PO SCH (22:53)
[2022-10-30] VITALS: BP 135/57
[2022-10-30] MEDS: CEFEPIME HCL 2 GM in DEXTROSE 5%-WATER 50 ML IV SCH ×2 (00:47→12:53)
[2022-10-30] MEDS ORDERED: SODIUM CHLORIDE 0.9% 250 ML IV ONE (00:48)
[2022-10-30 04:00] VITALS: BP 127/53
[2022-10-30] MEDS: PROPOFOL 1000 MG/ISO-OSM 100 ML IV PRN ×2 (05:30→16:54)
[2022-10-30] MEDS: LEVOTHYROXINE SODIUM 150 MCG TABLET PO SCH (05:35)
[2022-10-30 05:54] LABS: BASOPHILS % (AUTO) 0.8 % (0.0-2.0); HEMATOCRIT 32.9 % (41-53); HEMOGLOBIN 11.7 g/dL (13.5-17.5); LYMPHOCYTES # (AUTO) 1.4 K/uL (1.0-4.8); LYMPHOCYTES % (AUTO) 26.6 % (22.0-44.0); MEAN CORPUSCULAR HEMOGLOBIN 40.4 pg (26.0-34.0); MEAN CORPUSCULAR HGB CONC 35.4 G/dL (31.0-37.0); MEAN CORPUSCULAR VOLUME 114 fL (80-100); MONOCYTES # (AUTO) 0.7 K/uL (0.1-1.0); MONOCYTES % (AUTO) 13.1 % (2.0-9.0); NEUTROPHILS # (AUTO) 2.8 K/uL (1.8-7.7); NEUTROPHILS % (AUTO) 54.5 % (40.0-70.0); PLATELET COUNT (AUTO) 108 K/uL (150-450); RED BLOOD CELL COUNT(AUTO) 2.89 MIL/uL (4.50-5.90); RED CELL DISTRIBUTION WIDTH 15.6 % (11.5-14.5)
[2022-10-30] MEDS: LevETIRAcetam 1,000 MG in DEXTROSE 5%-WATER 100 ML IV SCH ×2 (05:58→17:08)
[2022-10-30 06:12] LABS: GLUCOSE,POINT OF CARE 126 MG/DL (70-110)
[2022-10-30 06:12] LABS: GLUCOSE,POINT OF CARE 122 MG/DL (70-110)
[2022-10-30 06:12] LABS: GLUCOSE,POINT OF CARE 128 MG/DL (70-110)
[2022-10-30 06:13] LABS: CALCIUM, TOTAL 8.3 mg/dL (8.8-10.5); CREATININE 1.2 mg/dL (0.60-1.30); MAGNESIUM 1.9 mg/dL (1.80-2.40); PHOSPHORUS 3.2 mg/dL (2.5-4.9); POTASSIUM 3.7 mmol/L (3.5-5.1); VANCOMYCIN,RANDOM 17.2 mcg/mL (25.0-50.0)
[2022-10-30 08:00] VITALS: BP 122/40
[2022-10-30] MEDS: ETHYL ALCOHOL 62% ANTISEPTIC NASAL SANITIZER 0.6 ML AMPUL NASAL SCH ×2 (08:23→20:19)
[2022-10-30] MEDS: CHLORHEXIDINE GLUCONATE 0.12% 15 ML UDCUP ORAL RINSE MM SCH ×2 (08:24→20:19)
[2022-10-30] MEDS: ASPIRIN 81 MG CHEWABLE TABLET PO SCH (08:24)
[2022-10-30] MEDS: OMEPRAZOLE 20 MG CAPSULE PO SCH (08:24)
[2022-10-30] MEDS: VANCOMYCIN HCL 1 GM/D5% WATER 200 ML IV SCH (08:24)
[2022-10-30] MEDS: DOCUSATE SODIUM 100 MG CAPSULE PO SCH (08:24)
[2022-10-30] MEDS: HEPARIN SODIUM,PORCINE 5,000 UNITS/ML VIAL SQ SCH ×3 (08:24→23:58)
[2022-10-30] MEDS: CLOTRIMAZOLE 1%/BETAMETH DIP 0.05% 15 GM CREAM TP SCH (08:25)
[2022-10-30] MEDS: CIPROFLOXACIN HCL 0.3% 3.5 GM OPHTHALMIC OINTMENT OU SCH ×2 (08:25→20:19)
[2022-10-30 12:00] VITALS: BP 134/51
[2022-10-30 16:00] VITALS: BP 120/52
[2022-10-30 17:42] LABS: GLUCOSE,POINT OF CARE 120 MG/DL (70-110)
[2022-10-30 20:00] VITALS: BP 134/62
[2022-10-30] MEDS: NIACIN 500 MG PO SCH (20:19)
[2022-10-30] MEDS: SIMVASTATIN 20 MG TABLET PO SCH (20:19)
[2022-10-30] MEDS: INSULIN GLARGINE,HUM.REC.ANLOG 100 UNITS/ML SQ SCH (20:23)
[2022-10-31] VITALS: BP 131/55
[2022-10-31] MEDS: CEFEPIME HCL 2 GM in DEXTROSE 5%-WATER 50 ML IV SCH ×2 (00:01→12:57)
[2022-10-31] MEDS: PROPOFOL 1000 MG/ISO-OSM 100 ML IV PRN ×4 (02:54→23:04)
[2022-10-31 03:11] LABS: GLUCOSE,POINT OF CARE 122 MG/DL (70-110)
[2022-10-31 03:12] LABS: GLUCOSE,POINT OF CARE 118 MG/DL (70-110)
[2022-10-31 04:00] VITALS: BP 126/50
[2022-10-31] MEDS: LevETIRAcetam 1,000 MG in DEXTROSE 5%-WATER 100 ML IV SCH ×2 (05:56→18:18)
[2022-10-31] MEDS: LEVOTHYROXINE SODIUM 150 MCG TABLET PO SCH (05:59)
[2022-10-31 06:31] LABS: ANION GAP 8 mmol/L (8-16); CALCIUM, TOTAL 8.6 mg/dL (8.8-10.5); CARBON DIOXIDE 26 mmol/L (22-29); CHLORIDE 107 mmol/L (98-107); CREATININE 1.09 mg/dL (0.60-1.30); GLOMERULAR FILTR. RATE CALC > 60 mL/min (>60); GLUCOSE,RANDOM 143 mg/dL (70-110); LACTATE DEHYDROGENASE 172 U/L (85-227); POTASSIUM 3.8 mmol/L (3.5-5.1); SODIUM SERUM 141 mmol/L (136-145); TOTAL PROTEIN, SERUM 6.4 g/dL (6.4-8.2); UREA NITROGEN, BLOOD 31 mg/dL (7-18)
[2022-10-31 07:00] LABS: BASOPHILS % (AUTO) 0.7 % (0.0-2.0); EOSINOPHILS % (AUTO) 4.2 % (1.0-6.0); HEMATOCRIT 34.6 % (41-53); HEMOGLOBIN 12.1 g/dL (13.5-17.5); LYMPHOCYTES # (AUTO) 1.4 K/uL (1.0-4.8); LYMPHOCYTES % (AUTO) 24.6 % (22.0-44.0); MEAN CORPUSCULAR HEMOGLOBIN 40.1 pg (26.0-34.0); MEAN CORPUSCULAR HGB CONC 34.9 G/dL (31.0-37.0); MEAN CORPUSCULAR VOLUME 115 fL (80-100); MONOCYTES # (AUTO) 0.7 K/uL (0.1-1.0); MONOCYTES % (AUTO) 12.6 % (2.0-9.0); NEUTROPHILS # (AUTO) 3.3 K/uL (1.8-7.7); NEUTROPHILS % (AUTO) 57.9 % (40.0-70.0); PLATELET COUNT (AUTO) 110 K/uL (150-450); RED BLOOD CELL COUNT(AUTO) 3.02 MIL/uL (4.50-5.90); RED CELL DISTRIBUTION WIDTH 15.6 % (11.5-14.5)
[2022-10-31 08:00] VITALS: BP 126/93
[2022-10-31] MEDS: VANCOMYCIN HCL 1 GM/D5% WATER 200 ML IV SCH (08:22)
[2022-10-31] MEDS: ASPIRIN 81 MG CHEWABLE TABLET PO SCH (08:22)
[2022-10-31] MEDS: HEPARIN SODIUM,PORCINE 5,000 UNITS/ML VIAL SQ SCH ×2 (08:22→16:03)
[2022-10-31] MEDS: ETHYL ALCOHOL 62% ANTISEPTIC NASAL SANITIZER 0.6 ML AMPUL NASAL SCH ×2 (08:22→21:54)
[2022-10-31] MEDS: CHLORHEXIDINE GLUCONATE 0.12% 15 ML UDCUP ORAL RINSE MM SCH ×2 (08:22→21:54)
[2022-10-31] MEDS: OMEPRAZOLE 20 MG CAPSULE PO SCH (08:23)
[2022-10-31] MEDS: DOCUSATE SODIUM 100 MG CAPSULE PO SCH (08:27)
[2022-10-31] MEDS: CIPROFLOXACIN HCL 0.3% 3.5 GM OPHTHALMIC OINTMENT OU SCH ×2 (08:27→21:54)
[2022-10-31] MEDS: CLOTRIMAZOLE 1%/BETAMETH DIP 0.05% 15 GM CREAM TP SCH (08:27)
[2022-10-31 10:00] LABS: GLUCOSE,POINT OF CARE 135 MG/DL (70-110)
[2022-10-31 12:00] VITALS: BP 143/52
[2022-10-31 16:00] VITALS: BP 139/59
[2022-10-31 18:07] LABS: GLUCOSE,POINT OF CARE 144 MG/DL (70-110)
[2022-10-31 20:00] VITALS: BP 139/55
[2022-10-31] MEDS: SIMVASTATIN 20 MG TABLET PO SCH (21:54)
[2022-10-31] MEDS: NIACIN 500 MG PO SCH (21:54)
[2022-10-31] MEDS: INSULIN GLARGINE,HUM.REC.ANLOG 100 UNITS/ML SQ SCH (21:55)
[2022-11-01] VITALS: BP 138/54
[2022-11-01] MEDS: HEPARIN SODIUM,PORCINE 5,000 UNITS/ML VIAL SQ SCH ×4 (00:01→17:48)
[2022-11-01] MEDS: CEFEPIME HCL 2 GM in DEXTROSE 5%-WATER 50 ML IV SCH ×2 (00:01→13:03)
[2022-11-01 01:06] LABS: GLUCOSE,POINT OF CARE 127 MG/DL (70-110)
[2022-11-01 04:00] VITALS: BP 138/58
[2022-11-01] MEDS: LevETIRAcetam 1,000 MG in DEXTROSE 5%-WATER 100 ML IV SCH ×2 (05:51→17:48)
[2022-11-01] MEDS: LEVOTHYROXINE SODIUM 150 MCG TABLET PO SCH (05:51)
[2022-11-01 06:12] LABS: GLUCOSE,POINT OF CARE 122 MG/DL (70-110)
[2022-11-01 06:45] LABS: BASOPHILS % (AUTO) 0.7 % (0.0-2.0); EOSINOPHILS % (AUTO) 3.5 % (1.0-6.0); HEMATOCRIT 34.7 % (41-53); HEMOGLOBIN 12.1 g/dL (13.5-17.5); LYMPHOCYTES # (AUTO) 1.3 K/uL (1.0-4.8); LYMPHOCYTES % (AUTO) 22.5 % (22.0-44.0); MEAN CORPUSCULAR HEMOGLOBIN 40.1 pg (26.0-34.0); MEAN CORPUSCULAR VOLUME 115 fL (80-100); MONOCYTES # (AUTO) 0.8 K/uL (0.1-1.0); NEUTROPHILS # (AUTO) 3.5 K/uL (1.8-7.7); NEUTROPHILS % (AUTO) 60.3 % (40.0-70.0); PLATELET COUNT (AUTO) 108 K/uL (150-450); RED BLOOD CELL COUNT(AUTO) 3.03 MIL/uL (4.50-5.90); RED CELL DISTRIBUTION WIDTH 15.3 % (11.5-14.5)
[2022-11-01 06:48] LABS: ANION GAP 5 mmol/L (8-16); CALCIUM, TOTAL 8.6 mg/dL (8.8-10.5); CARBON DIOXIDE 30 mmol/L (22-29); CHLORIDE 107 mmol/L (98-107); CREATININE 1.05 mg/dL (0.60-1.30); GLOMERULAR FILTR. RATE CALC > 60 mL/min (>60); GLUCOSE,RANDOM 141 mg/dL (70-110); POTASSIUM 3.8 mmol/L (3.5-5.1); SODIUM SERUM 142 mmol/L (136-145); UREA NITROGEN, BLOOD 30 mg/dL (7-18)
[2022-11-01 08:00] VITALS: BP 142/57
[2022-11-01] MEDS: DOCUSATE SODIUM 100 MG CAPSULE PO SCH (08:32)
[2022-11-01] MEDS: CHLORHEXIDINE GLUCONATE 0.12% 15 ML UDCUP ORAL RINSE MM SCH ×2 (08:48→20:15)
[2022-11-01] MEDS: VANCOMYCIN HCL 1 GM/D5% WATER 200 ML IV SCH (08:48)
[2022-11-01] MEDS: ASPIRIN 81 MG CHEWABLE TABLET PO SCH ×2 (08:48→09:00)
[2022-11-01] MEDS: ETHYL ALCOHOL 62% ANTISEPTIC NASAL SANITIZER 0.6 ML AMPUL NASAL SCH ×2 (08:49→20:15)
[2022-11-01] MEDS: OMEPRAZOLE 20 MG CAPSULE PO SCH ×2 (08:49→09:00)
[2022-11-01] MEDS: CIPROFLOXACIN HCL 0.3% 3.5 GM OPHTHALMIC OINTMENT OU SCH ×2 (08:50→20:15)
[2022-11-01] MEDS: CLOTRIMAZOLE 1%/BETAMETH DIP 0.05% 15 GM CREAM TP SCH (08:50)
[2022-11-01 12:00] VITALS: BP 129/57
[2022-11-01 14:11] LABS: GLUCOSE,POINT OF CARE 112 MG/DL (70-110)
[2022-11-01 16:00] VITALS: BP 127/51
[2022-11-01 19:16] LABS: GLUCOSE,POINT OF CARE 137 MG/DL (70-110)
[2022-11-01] MEDS ORDERED: SODIUM CHLORIDE 0.9% 250 ML IV ONE (19:37)
[2022-11-01 20:00] VITALS: BP 126/58
[2022-11-01] MEDS: SIMVASTATIN 20 MG TABLET PO SCH (20:15)
[2022-11-01] MEDS: PROPOFOL 1000 MG/ISO-OSM 100 ML IV PRN (20:17)
[2022-11-01] MEDS: NIACIN 500 MG PO SCH (20:58)
[2022-11-01] MEDS: INSULIN GLARGINE,HUM.REC.ANLOG 100 UNITS/ML SQ SCH (21:17)
[2022-11-01] MEDS ORDERED: DOPamine 400MG/D5W[STANDARD] 250 ML IV PRN (21:45)
[2022-11-01 22:21] LABS: GLUCOSE,POINT OF CARE 131 MG/DL (70-110)
[2022-11-01 23:41] LABS: GLUCOSE,POINT OF CARE 128 MG/DL (70-110)
[2022-11-02] VITALS: BP 131/59
[2022-11-02] MEDS: HEPARIN SODIUM,PORCINE 5,000 UNITS/ML VIAL SQ SCH ×4 (00:09→23:06)
[2022-11-02] MEDS: PROPOFOL 1000 MG/ISO-OSM 100 ML IV PRN ×2 (00:09→06:43)
[2022-11-02] MEDS: CEFEPIME HCL 2 GM in DEXTROSE 5%-WATER 50 ML IV SCH (00:10)
[2022-11-02 04:00] VITALS: BP 171/64
[2022-11-02] MEDS: LevETIRAcetam 1,000 MG in DEXTROSE 5%-WATER 100 ML IV SCH ×2 (05:43→17:29)
[2022-11-02] MEDS: LEVOTHYROXINE SODIUM 150 MCG TABLET PO SCH (05:43)
[2022-11-02 06:06] LABS: GLUCOSE,POINT OF CARE 109 MG/DL (70-110)
[2022-11-02 06:09] LABS: ANION GAP 8 mmol/L (8-16); CALCIUM, TOTAL 8.6 mg/dL (8.8-10.5); CARBON DIOXIDE 28 mmol/L (22-29); CHLORIDE 107 mmol/L (98-107); CREATININE 1.01 mg/dL (0.60-1.30); GLOMERULAR FILTR. RATE CALC > 60 mL/min (>60); GLUCOSE,RANDOM 127 mg/dL (70-110); POTASSIUM 4.2 mmol/L (3.5-5.1); SODIUM SERUM 143 mmol/L (136-145); UREA NITROGEN, BLOOD 28 mg/dL (7-18)
[2022-11-02 08:00] VITALS: BP 120/49
[2022-11-02] MEDS: ASPIRIN 81 MG CHEWABLE TABLET PO SCH (08:35)
[2022-11-02] MEDS: OMEPRAZOLE 20 MG CAPSULE PO SCH (08:36)
[2022-11-02] MEDS: DOCUSATE SODIUM 100 MG CAPSULE PO SCH (08:36)
[2022-11-02] MEDS: ETHYL ALCOHOL 62% ANTISEPTIC NASAL SANITIZER 0.6 ML AMPUL NASAL SCH ×2 (08:36→21:32)
[2022-11-02] MEDS: CHLORHEXIDINE GLUCONATE 0.12% 15 ML UDCUP ORAL RINSE MM SCH ×2 (08:36→21:32)
[2022-11-02] MEDS: CLOTRIMAZOLE 1%/BETAMETH DIP 0.05% 15 GM CREAM TP SCH (08:37)
[2022-11-02 11:20] LABS: INR 1.1 (0.9-1.1); PROTHROMBIN TIME 11.5 SEC (9.4-11.6)
[2022-11-02 12:00] VITALS: BP 119/52
[2022-11-02 13:06] LABS: GLUCOSE,POINT OF CARE 113 MG/DL (70-110)
[2022-11-02 16:00] VITALS: BP 113/60
[2022-11-02 17:51] LABS: GLUCOSE,POINT OF CARE 103 MG/DL (70-110)
[2022-11-02 20:00] VITALS: BP 123/54
[2022-11-02 20:10] LABS: SPECIMENTYPE,BODY FLUID PLEURAL
[2022-11-02 21:27] LABS: APPEARANCE,SPUN,BODY FLUID CLEAR (CLEAR); APPEARANCE,UNSPUN,BODY FLUID CLOUDY (CLEAR)
[2022-11-02 21:30] LABS: COLOR,BODY FLUID ORANGE (LT YELLOW)
[2022-11-02 21:31] LABS: BASOPHILS,BODY FLUID 0 %; EOSINOPHILS,BF (ANAL) 0 %; LYMPHOCYTES,BODY FLUID 77 %; MONOCYTES,BODY FLUID 10 %; NEUTROPHILS,BODY FLUID 8 %; OTHER CELLS,BODY FLUID MESOTHELIALS; TOTAL VOLUME,BODY FLUID 1150 mL; WBC, BODY FLUID 28 /cu. mm.
[2022-11-02 21:32] LABS: PH, BODY FLUID 8
[2022-11-02] MEDS: NIACIN 500 MG TABLET PO SCH (21:32)
[2022-11-02] MEDS: INSULIN GLARGINE,HUM.REC.ANLOG 100 UNITS/ML SQ SCH (21:37)
[2022-11-02] MEDS: SIMVASTATIN 20 MG TABLET PO SCH (21:52)
[2022-11-02 23:06] LABS: GLUCOSE,POINT OF CARE 126 MG/DL (70-110)
[2022-11-03] VITALS (8 sets, daily range): BP systolic 99–139; BP diastolic 43–64
[2022-11-03] MEDS: PROPOFOL 1000 MG/ISO-OSM 100 ML IV PRN ×2 (00:16→04:26)
[2022-11-03 01:51] LABS: GLUCOSE,POINT OF CARE 127 MG/DL (70-110)
[2022-11-03] MEDS: LEVOTHYROXINE SODIUM 150 MCG TABLET PO SCH (05:26)
[2022-11-03] MEDS: LevETIRAcetam 1,000 MG in DEXTROSE 5%-WATER 100 ML IV SCH ×2 (05:26→18:00)
[2022-11-03 06:41] LABS: GLUCOSE,POINT OF CARE 134 MG/DL (70-110)
[2022-11-03] MEDS: CLOTRIMAZOLE 1%/BETAMETH DIP 0.05% 15 GM CREAM TP SCH (08:37)
[2022-11-03] MEDS: CHLORHEXIDINE GLUCONATE 0.12% 15 ML UDCUP ORAL RINSE MM SCH ×2 (08:37→21:00)
[2022-11-03] MEDS: ASPIRIN 81 MG CHEWABLE TABLET PO SCH (08:38)
[2022-11-03] MEDS: DOCUSATE SODIUM 100 MG CAPSULE PO SCH (08:38)
[2022-11-03] MEDS: ETHYL ALCOHOL 62% ANTISEPTIC NASAL SANITIZER 0.6 ML AMPUL NASAL SCH ×2 (08:38→22:04)
[2022-11-03] MEDS: OMEPRAZOLE 20 MG CAPSULE PO SCH (08:38)
[2022-11-03] MEDS: HEPARIN SODIUM,PORCINE 5,000 UNITS/ML VIAL SQ SCH ×2 (08:38→17:29)
[2022-11-03 10:52] LABS: ABG BASE EXCESS -1.7 mmol/L (-2.0-3.0); ABG CARBOXYHEMOGLOBIN 1.2 % (0.0-1.5); ABG HCO3 23.5 mmol/L (22.0-26.0); ABG METHEMOGLOBIN 0.3 % (0.0-1.5); ABG OXYGEN CONTENT 16.2 mL/dL (15.0-23.0); ABG OXYGEN SATURATION 94.9 % (95.0-98.0); ABG OXYHEMOGLOBIN 93.5 % (94.0-100.0); ABG PCO2 33 mmHg (35-45); ABG PH 7.447 (7.35-7.450); ABG TOTAL HEMOGLOBIN 12.3 G/dL (12.0-18.0); PO2, ARTERIAL BG 74.2 mmHg (75.0-83.0); SOURCE, BLOOD GAS ARTERIAL; TEMPERATURE, FAHRENHEIT, BG 98.2 FAHREN (96.0-98.6)
[2022-11-03 10:53] LABS: O2 DEVICE,BLOOD GAS VENTILATOR (ROOM AIR); PEEP,BG 5 cm H2O; PRESSURE SUPPORT, BG 10 cm H2O; SITE, BLOOD GAS LFT BRACHIAL; VENT MODE, BG CPAP (ROOM AIR)
[2022-11-03 13:26] LABS: GLUCOSE,POINT OF CARE 123 MG/DL (70-110)
[2022-11-03 19:26] LABS: GLUCOSE,POINT OF CARE 107 MG/DL (70-110)
[2022-11-03] MEDS: INSULIN GLARGINE,HUM.REC.ANLOG 100 UNITS/ML SQ SCH (21:00)
[2022-11-03] MEDS: NIACIN 500 MG TABLET PO SCH (21:00)
[2022-11-03] MEDS: SIMVASTATIN 20 MG TABLET PO SCH (21:00)
[2022-11-03 22:36] LABS: GLUCOSE,POINT OF CARE 100 MG/DL (70-110)
[2022-11-04] VITALS: BP 109/54
[2022-11-04] MEDS: HEPARIN SODIUM,PORCINE 5,000 UNITS/ML VIAL SQ SCH ×3 (00:04→17:06)
[2022-11-04 01:11] LABS: GLUCOSE,POINT OF CARE 104 MG/DL (70-110)
[2022-11-04 04:00] VITALS: BP 122/41
[2022-11-04 06:20] LABS: BASOPHILS % (AUTO) 0.7 % (0.0-2.0); EOSINOPHILS % (AUTO) 6.6 % (1.0-6.0); HEMATOCRIT 34.1 % (41-53); HEMOGLOBIN 11.8 g/dL (13.5-17.5); LYMPHOCYTES # (AUTO) 1.3 K/uL (1.0-4.8); LYMPHOCYTES % (AUTO) 22.1 % (22.0-44.0); MEAN CORPUSCULAR HEMOGLOBIN 40.1 pg (26.0-34.0); MEAN CORPUSCULAR HGB CONC 34.6 G/dL (31.0-37.0); MEAN CORPUSCULAR VOLUME 116 fL (80-100); MONOCYTES # (AUTO) 0.8 K/uL (0.1-1.0); MONOCYTES % (AUTO) 13.4 % (2.0-9.0); NEUTROPHILS # (AUTO) 3.4 K/uL (1.8-7.7); NEUTROPHILS % (AUTO) 57.2 % (40.0-70.0); PLATELET COUNT (AUTO) 121 K/uL (150-450); RED BLOOD CELL COUNT(AUTO) 2.94 MIL/uL (4.50-5.90); RED CELL DISTRIBUTION WIDTH 15.4 % (11.5-14.5)
[2022-11-04 06:24] LABS: CALCIUM, TOTAL 8.5 mg/dL (8.8-10.5); CREATININE 1.35 mg/dL (0.60-1.30); POTASSIUM 4.3 mmol/L (3.5-5.1)
[2022-11-04] MEDS ORDERED: SODIUM CHLORIDE 0.9% 500 ML IV ONE (06:28)
[2022-11-04] MEDS: LevETIRAcetam 1,000 MG in DEXTROSE 5%-WATER 100 ML IV SCH ×2 (06:29→17:06)
[2022-11-04] MEDS: LEVOTHYROXINE SODIUM 150 MCG TABLET PO SCH (06:30)
[2022-11-04 06:56] LABS: GLUCOSE,POINT OF CARE 98 MG/DL (70-110)
[2022-11-04] MEDS: ETHYL ALCOHOL 62% ANTISEPTIC NASAL SANITIZER 0.6 ML AMPUL NASAL SCH ×2 (08:22→20:52)
[2022-11-04] MEDS: DOCUSATE SODIUM 100 MG CAPSULE PO SCH (08:22)
[2022-11-04] MEDS: ASPIRIN 81 MG CHEWABLE TABLET PO SCH (08:22)
[2022-11-04] MEDS: OMEPRAZOLE 20 MG CAPSULE PO SCH (08:22)
[2022-11-04] MEDS: CHLORHEXIDINE GLUCONATE 0.12% 15 ML UDCUP ORAL RINSE MM SCH ×2 (08:22→20:51)
[2022-11-04] MEDS: CLOTRIMAZOLE 1%/BETAMETH DIP 0.05% 15 GM CREAM TP SCH (09:00)
[2022-11-04 09:15] VITALS: BP 151/59
[2022-11-04 12:00] VITALS: BP 139/54
[2022-11-04 16:00] VITALS: BP 138/57
[2022-11-04 18:07] LABS: GLUCOSE,POINT OF CARE 112 MG/DL (70-110)
[2022-11-04 18:11] LABS: GLUCOSE,POINT OF CARE 126 MG/DL (70-110)
[2022-11-04 20:00] VITALS: BP 136/54
[2022-11-04] MEDS: SIMVASTATIN 20 MG TABLET PO SCH (20:51)
[2022-11-04] MEDS: NIACIN 500 MG TABLET PO SCH (20:52)
[2022-11-04] MEDS: INSULIN GLARGINE,HUM.REC.ANLOG 100 UNITS/ML SQ SCH (20:52)
[2022-11-04] MEDS ORDERED: HALOPERIDOL LACTATE 5 MG/ML VIAL IM ONE (22:30)
[2022-11-05] VITALS (7 sets, daily range): BP systolic 106–150; BP diastolic 41–70
[2022-11-05] MEDS: HEPARIN SODIUM,PORCINE 5,000 UNITS/ML VIAL SQ SCH ×3 (00:23→16:00)
[2022-11-05 00:41] LABS: GLUCOSE,POINT OF CARE 100 MG/DL (70-110)
[2022-11-05] MEDS: LevETIRAcetam 1,000 MG in DEXTROSE 5%-WATER 100 ML IV SCH ×2 (07:12→18:05)
[2022-11-05 08:26] LABS: GLUCOMETER DEV NAME(LOC) 5S.2C; GLUCOSE,POINT OF CARE 112 MG/DL (70-110)
[2022-11-05] MEDS: DOCUSATE SODIUM 100 MG CAPSULE PO SCH (09:00)
[2022-11-05] MEDS: CHLORHEXIDINE GLUCONATE 0.12% 15 ML UDCUP ORAL RINSE MM SCH ×2 (09:40→20:28)
[2022-11-05] MEDS: ASPIRIN 81 MG CHEWABLE TABLET PO SCH (09:40)
[2022-11-05] MEDS: OMEPRAZOLE 20 MG CAPSULE PO SCH (09:40)
[2022-11-05] MEDS: LEVOTHYROXINE SODIUM 150 MCG TABLET PO SCH (09:40)
[2022-11-05] MEDS: ETHYL ALCOHOL 62% ANTISEPTIC NASAL SANITIZER 0.6 ML AMPUL NASAL SCH ×2 (09:40→20:22)
[2022-11-05] MEDS: CLOTRIMAZOLE 1%/BETAMETH DIP 0.05% 15 GM CREAM TP SCH (09:41)
[2022-11-05] MEDS: NYSTATIN 15 GM POWDER BOTTLE TP SCH (11:15)
[2022-11-05 12:46] LABS: GLUCOSE,POINT OF CARE 107 MG/DL (70-110)
[2022-11-05] MEDS: SIMVASTATIN 20 MG TABLET PO SCH (20:22)
[2022-11-05] MEDS: INSULIN GLARGINE,HUM.REC.ANLOG 100 UNITS/ML SQ SCH (20:25)
[2022-11-05] MEDS: NIACIN 500 MG TABLET PO SCH (20:28)
[2022-11-05 22:06] LABS: GLUCOMETER DEV NAME(LOC) 5N.1C; GLUCOSE,POINT OF CARE 91 MG/DL (70-110)
[2022-11-05 22:06] LABS: GLUCOMETER DEV NAME(LOC) 5N.1C; GLUCOSE,POINT OF CARE 102 MG/DL (70-110)
[2022-11-06 00:58] VITALS: BP 109/61
[2022-11-06] MEDS: LevETIRAcetam 1,000 MG in DEXTROSE 5%-WATER 100 ML IV SCH ×2 (05:53→17:42)
[2022-11-06] MEDS: LEVOTHYROXINE SODIUM 150 MCG TABLET PO SCH (05:54)
[2022-11-06 06:14] VITALS: BP 104/44
[2022-11-06 07:22] VITALS: BP 116/58
[2022-11-06] MEDS: DOCUSATE SODIUM 100 MG CAPSULE PO SCH (09:00)
[2022-11-06] MEDS: CHLORHEXIDINE GLUCONATE 0.12% 15 ML UDCUP ORAL RINSE MM SCH ×2 (09:02→20:18)
[2022-11-06] MEDS: NYSTATIN 15 GM POWDER BOTTLE TP SCH (09:03)
[2022-11-06] MEDS: CLOTRIMAZOLE 1%/BETAMETH DIP 0.05% 15 GM CREAM TP SCH (09:03)
[2022-11-06] MEDS: ETHYL ALCOHOL 62% ANTISEPTIC NASAL SANITIZER 0.6 ML AMPUL NASAL SCH ×2 (09:03→20:18)
[2022-11-06] MEDS: OMEPRAZOLE 20 MG CAPSULE PO SCH (09:03)
[2022-11-06] MEDS: ASPIRIN 81 MG CHEWABLE TABLET PO SCH (09:03)
[2022-11-06] MEDS: HEPARIN SODIUM,PORCINE 5,000 UNITS/ML VIAL SQ SCH ×3 (09:03→17:05)
[2022-11-06 10:22] LABS: GLUCOMETER DEV NAME(LOC) 5N.1C; GLUCOSE,POINT OF CARE 98 MG/DL (70-110)
[2022-11-06 10:22] LABS: GLUCOMETER DEV NAME(LOC) 5S.2C; GLUCOSE,POINT OF CARE 76 MG/DL (70-110)
[2022-11-06 12:00] VITALS: BP 124/54
[2022-11-06 12:36] LABS: GLUCOMETER DEV NAME(LOC) 5S.2C; GLUCOSE,POINT OF CARE 79 MG/DL (70-110)
[2022-11-06 15:43] VITALS: BP 108/55
[2022-11-06] MEDS: ACETAMINOPHEN 325 MG TABLET PO PRN (17:47)
[2022-11-06 20:10] VITALS: BP 108/46
[2022-11-06] MEDS: NIACIN 500 MG TABLET PO SCH (20:18)
[2022-11-06] MEDS: SIMVASTATIN 20 MG TABLET PO SCH (20:18)
[2022-11-06] MEDS: INSULIN GLARGINE,HUM.REC.ANLOG 100 UNITS/ML SQ SCH (20:20)
[2022-11-07 00:35] VITALS: BP 109/49
[2022-11-07 05:15] VITALS: BP 124/50
[2022-11-07 05:21] LABS: GLUCOMETER DEV NAME(LOC) 5S.2C; GLUCOSE,POINT OF CARE 139 MG/DL (70-110)
[2022-11-07 05:21] LABS: GLUCOMETER DEV NAME(LOC) 5S.2C; GLUCOSE,POINT OF CARE 138 MG/DL (70-110)
[2022-11-07] MEDS: LevETIRAcetam 1,000 MG in DEXTROSE 5%-WATER 100 ML IV SCH ×2 (05:39→17:34)
[2022-11-07] MEDS: LEVOTHYROXINE SODIUM 150 MCG TABLET PO SCH (05:39)
[2022-11-07] MEDS ORDERED: SODIUM CHLORIDE 0.9% 500 ML IV ONE (05:58)
[2022-11-07 07:23] VITALS: BP 97/45
[2022-11-07 07:31] LABS: GLUCOMETER DEV NAME(LOC) 5N.1C; GLUCOSE,POINT OF CARE 135 MG/DL (70-110)
[2022-11-07] MEDS: HEPARIN SODIUM,PORCINE 5,000 UNITS/ML VIAL SQ SCH ×3 (08:00→16:00)
[2022-11-07] MEDS: ASPIRIN 81 MG CHEWABLE TABLET PO SCH (08:49)
[2022-11-07] MEDS: OMEPRAZOLE 20 MG CAPSULE PO SCH (08:50)
[2022-11-07] MEDS: DOCUSATE SODIUM 100 MG CAPSULE PO SCH (08:50)
[2022-11-07] MEDS: NYSTATIN 15 GM POWDER BOTTLE TP SCH (08:51)
[2022-11-07] MEDS: CHLORHEXIDINE GLUCONATE 0.12% 15 ML UDCUP ORAL RINSE MM SCH ×2 (08:51→20:13)
[2022-11-07] MEDS: ETHYL ALCOHOL 62% ANTISEPTIC NASAL SANITIZER 0.6 ML AMPUL NASAL SCH ×2 (08:52→20:13)
[2022-11-07 11:55] VITALS: BP 107/55
[2022-11-07 12:31] LABS: GLUCOMETER DEV NAME(LOC) 5S.2C; GLUCOSE,POINT OF CARE 165 MG/DL (70-110)
[2022-11-07] MEDS: INSULIN LISPRO 100 UNITS/ML SQ PRN (14:08)
[2022-11-07] MEDS: CLOTRIMAZOLE 1%/BETAMETH DIP 0.05% 15 GM CREAM TP SCH (14:11)
[2022-11-07 16:50] VITALS: BP 111/54
[2022-11-07 19:54] VITALS: BP 118/55
[2022-11-07 20:01] LABS: GLUCOMETER DEV NAME(LOC) 5S.2C; GLUCOSE,POINT OF CARE 105 MG/DL (70-110)
[2022-11-07] MEDS: SIMVASTATIN 20 MG TABLET PO SCH (20:13)
[2022-11-07] MEDS: NIACIN 500 MG TABLET PO SCH (20:14)
[2022-11-07] MEDS: INSULIN GLARGINE,HUM.REC.ANLOG 100 UNITS/ML SQ SCH (21:13)
[2022-11-08 00:12] VITALS: BP 140/52
[2022-11-08 04:55] VITALS: BP 120/56
[2022-11-08] MEDS: LEVOTHYROXINE SODIUM 150 MCG TABLET PO SCH (05:50)
[2022-11-08] MEDS: LevETIRAcetam 1,000 MG in DEXTROSE 5%-WATER 100 ML IV SCH (05:59)
[2022-11-08 07:27] VITALS: BP 141/55
[2022-11-08] MEDS: HEPARIN SODIUM,PORCINE 5,000 UNITS/ML VIAL SQ SCH ×4 (08:00→23:43)
[2022-11-08] MEDS: ACETAMINOPHEN 325 MG TABLET PO PRN (08:40)
[2022-11-08] MEDS: ETHYL ALCOHOL 62% ANTISEPTIC NASAL SANITIZER 0.6 ML AMPUL NASAL SCH ×2 (09:10→20:31)
[2022-11-08] MEDS: CHLORHEXIDINE GLUCONATE 0.12% 15 ML UDCUP ORAL RINSE MM SCH ×2 (09:10→20:31)
[2022-11-08] MEDS: DOCUSATE SODIUM 100 MG CAPSULE PO SCH (09:12)
[2022-11-08] MEDS: ASPIRIN 81 MG CHEWABLE TABLET PO SCH (09:13)
[2022-11-08] MEDS: OMEPRAZOLE 20 MG CAPSULE PO SCH (09:14)
[2022-11-08] MEDS: NYSTATIN 15 GM POWDER BOTTLE TP SCH (09:49)
[2022-11-08] MEDS: CLOTRIMAZOLE 1%/BETAMETH DIP 0.05% 15 GM CREAM TP SCH (09:49)
[2022-11-08 12:31] LABS: GLUCOMETER DEV NAME(LOC) 5S.1B; GLUCOSE,POINT OF CARE 135 MG/DL (70-110)
[2022-11-08 15:17] VITALS: BP 137/74
[2022-11-08 20:07] VITALS: BP 145/58
[2022-11-08] MEDS: LevETIRAcetam 500 MG TABLET PO SCH (20:30)
[2022-11-08] MEDS: NIACIN 500 MG TABLET PO SCH (20:30)
[2022-11-08] MEDS: SIMVASTATIN 20 MG TABLET PO SCH (20:30)
[2022-11-08] MEDS: INSULIN GLARGINE,HUM.REC.ANLOG 100 UNITS/ML SQ SCH (20:32)
[2022-11-08 22:37] LABS: GLUCOMETER DEV NAME(LOC) 5N.1C; GLUCOSE,POINT OF CARE 108 MG/DL (70-110)
[2022-11-09] VITALS (8 sets, daily range): BP systolic 142–162; BP diastolic 53–73
[2022-11-09 03:46] LABS: GLUCOMETER DEV NAME(LOC) 5S.1B; GLUCOSE,POINT OF CARE 101 MG/DL (70-110)
[2022-11-09] MEDS: LEVOTHYROXINE SODIUM 150 MCG TABLET PO SCH (06:36)
[2022-11-09 07:56] LABS: GLUCOMETER DEV NAME(LOC) 5S.1B; GLUCOSE,POINT OF CARE 111 MG/DL (70-110)
[2022-11-09] MEDS: DOCUSATE SODIUM 100 MG CAPSULE PO SCH (08:46)
[2022-11-09] MEDS: ASPIRIN 81 MG CHEWABLE TABLET PO SCH (08:46)
[2022-11-09] MEDS: OMEPRAZOLE 20 MG CAPSULE PO SCH (08:46)
[2022-11-09] MEDS: LevETIRAcetam 500 MG TABLET PO SCH ×2 (08:46→20:30)
[2022-11-09] MEDS: HEPARIN SODIUM,PORCINE 5,000 UNITS/ML VIAL SQ SCH ×3 (08:47→23:52)
[2022-11-09] MEDS: CHLORHEXIDINE GLUCONATE 0.12% 15 ML UDCUP ORAL RINSE MM SCH ×2 (08:47→21:12)
[2022-11-09] MEDS: ETHYL ALCOHOL 62% ANTISEPTIC NASAL SANITIZER 0.6 ML AMPUL NASAL SCH ×2 (08:47→20:30)
[2022-11-09] MEDS: CLOTRIMAZOLE 1%/BETAMETH DIP 0.05% 15 GM CREAM TP SCH (08:48)
[2022-11-09] MEDS: NYSTATIN 15 GM POWDER BOTTLE TP SCH (08:48)
[2022-11-09 12:01] LABS: GLUCOMETER DEV NAME(LOC) 5N.1C; GLUCOSE,POINT OF CARE 177 MG/DL (70-110)
[2022-11-09] MEDS: INSULIN LISPRO 100 UNITS/ML SQ PRN ×2 (13:27→20:28)
[2022-11-09] MEDS: INSULIN GLARGINE,HUM.REC.ANLOG 100 UNITS/ML SQ SCH (20:29)
[2022-11-09] MEDS: SIMVASTATIN 20 MG TABLET PO SCH (20:30)
[2022-11-09] MEDS: NIACIN 500 MG TABLET PO SCH (20:30)
[2022-11-09 20:45] LABS: GLUCOMETER DEV NAME(LOC) 5N.1C; GLUCOSE,POINT OF CARE 120 MG/DL (70-110)
[2022-11-09 20:46] LABS: GLUCOMETER DEV NAME(LOC) 5N.1C; GLUCOSE,POINT OF CARE 193 MG/DL (70-110)
[2022-11-10 04:24] VITALS: BP 123/55
[2022-11-10] MEDS: LEVOTHYROXINE SODIUM 150 MCG TABLET PO SCH (06:30)
[2022-11-10 08:12] VITALS: BP 108/40
[2022-11-10] MEDS: CHLORHEXIDINE GLUCONATE 0.12% 15 ML UDCUP ORAL RINSE MM SCH ×2 (08:41→23:30)
[2022-11-10] MEDS: CLOTRIMAZOLE 1%/BETAMETH DIP 0.05% 15 GM CREAM TP SCH (08:41)
[2022-11-10] MEDS: OMEPRAZOLE 20 MG CAPSULE PO SCH (08:42)
[2022-11-10] MEDS: LevETIRAcetam 500 MG TABLET PO SCH ×2 (08:42→21:16)
[2022-11-10] MEDS: DOCUSATE SODIUM 100 MG CAPSULE PO SCH (08:42)
[2022-11-10] MEDS: ASPIRIN 81 MG CHEWABLE TABLET PO SCH (08:42)
[2022-11-10] MEDS: NYSTATIN 15 GM POWDER BOTTLE TP SCH (08:44)
[2022-11-10] MEDS: HEPARIN SODIUM,PORCINE 5,000 UNITS/ML VIAL SQ SCH ×3 (08:44→23:30)
[2022-11-10] MEDS: ETHYL ALCOHOL 62% ANTISEPTIC NASAL SANITIZER 0.6 ML AMPUL NASAL SCH ×2 (09:54→21:15)
[2022-11-10 11:11] LABS: GLUCOMETER DEV NAME(LOC) 6S.1B; GLUCOSE,POINT OF CARE 112 MG/DL (70-110)
[2022-11-10 16:40] VITALS: BP 124/49
[2022-11-10 17:51] LABS: GLUCOMETER DEV NAME(LOC) 6S.1B; GLUCOSE,POINT OF CARE 98 MG/DL (70-110)
[2022-11-10 17:51] LABS: GLUCOMETER DEV NAME(LOC) 6S.1B; GLUCOSE,POINT OF CARE 133 MG/DL (70-110)
[2022-11-10] MEDS: SIMVASTATIN 20 MG TABLET PO SCH (21:15)
[2022-11-10] MEDS: INSULIN GLARGINE,HUM.REC.ANLOG 100 UNITS/ML SQ SCH (21:21)
[2022-11-10] MEDS: INSULIN LISPRO 100 UNITS/ML SQ PRN (21:23)
[2022-11-10] MEDS: NIACIN 500 MG TABLET PO SCH (23:30)
[2022-11-11 02:46] LABS: GLUCOMETER DEV NAME(LOC) 6N.1; GLUCOSE,POINT OF CARE 159 MG/DL (70-110)
[2022-11-11 03:51] VITALS: BP 125/52
[2022-11-11] MEDS: LEVOTHYROXINE SODIUM 150 MCG TABLET PO SCH (06:13)
[2022-11-11 08:00] VITALS: BP 151/59
[2022-11-11 08:01] LABS: GLUCOMETER DEV NAME(LOC) 6S.1B; GLUCOSE,POINT OF CARE 101 MG/DL (70-110)
[2022-11-11] MEDS: LevETIRAcetam 500 MG TABLET PO SCH ×2 (08:27→21:31)
[2022-11-11] MEDS: OMEPRAZOLE 20 MG CAPSULE PO SCH (08:28)
[2022-11-11] MEDS: ASPIRIN 81 MG CHEWABLE TABLET PO SCH (08:29)
[2022-11-11] MEDS: DOCUSATE SODIUM 100 MG CAPSULE PO SCH (08:29)
[2022-11-11] MEDS: ETHYL ALCOHOL 62% ANTISEPTIC NASAL SANITIZER 0.6 ML AMPUL NASAL SCH ×2 (08:30→21:30)
[2022-11-11] MEDS: CHLORHEXIDINE GLUCONATE 0.12% 15 ML UDCUP ORAL RINSE MM SCH ×2 (08:35→21:29)
[2022-11-11] MEDS: NYSTATIN 15 GM POWDER BOTTLE TP SCH (08:36)
[2022-11-11] MEDS: CLOTRIMAZOLE 1%/BETAMETH DIP 0.05% 15 GM CREAM TP SCH (08:36)
[2022-11-11] MEDS: HEPARIN SODIUM,PORCINE 5,000 UNITS/ML VIAL SQ SCH ×4 (08:36→23:50)
[2022-11-11] MEDS: LORazepam 2 MG/ML VIAL IVP PRN (12:09)
[2022-11-11 15:02] LABS: BASOPHILS % (AUTO) 0.6 % (0.0-2.0); EOSINOPHILS % (AUTO) 5.2 % (1.0-6.0); HEMATOCRIT 30.1 % (41-53); HEMOGLOBIN 10.7 g/dL (13.5-17.5); LYMPHOCYTES # (AUTO) 1.1 K/uL (1.0-4.8); LYMPHOCYTES % (AUTO) 29.8 % (22.0-44.0); MEAN CORPUSCULAR HEMOGLOBIN 40.4 pg (26.0-34.0); MEAN CORPUSCULAR HGB CONC 35.4 G/dL (31.0-37.0); MEAN CORPUSCULAR VOLUME 114 fL (80-100); MONOCYTES # (AUTO) 0.5 K/uL (0.1-1.0); MONOCYTES % (AUTO) 12.5 % (2.0-9.0); NEUTROPHILS # (AUTO) 1.9 K/uL (1.8-7.7); NEUTROPHILS % (AUTO) 51.9 % (40.0-70.0); RED BLOOD CELL COUNT(AUTO) 2.64 MIL/uL (4.50-5.90); RED CELL DISTRIBUTION WIDTH 15.2 % (11.5-14.5)
[2022-11-11 15:13] LABS: CALCIUM, TOTAL 8.5 mg/dL (8.8-10.5); CREATININE 1.22 mg/dL (0.60-1.30); POTASSIUM 3.7 mmol/L (3.5-5.1)
[2022-11-11 15:43] LABS: PLATELET COUNT (AUTO) 97 K/uL (150-450)
[2022-11-11 16:13] VITALS: BP 116/52
[2022-11-11 17:51] LABS: GLUCOMETER DEV NAME(LOC) 6N.2B; GLUCOSE,POINT OF CARE 126 MG/DL (70-110)
[2022-11-11 20:04] VITALS: BP 123/54
[2022-11-11] MEDS: INSULIN GLARGINE,HUM.REC.ANLOG 100 UNITS/ML SQ SCH (21:00)
[2022-11-11] MEDS: NIACIN 500 MG TABLET PO SCH (21:31)
[2022-11-11] MEDS: SIMVASTATIN 20 MG TABLET PO SCH (21:31)
[2022-11-11] MEDS: ACETAMINOPHEN 325 MG TABLET PO PRN (21:32)
[2022-11-11 22:56] LABS: GLUCOMETER DEV NAME(LOC) 6N.1; GLUCOSE,POINT OF CARE 139 MG/DL (70-110)
[2022-11-11 22:57] LABS: GLUCOMETER DEV NAME(LOC) 6N.2B; GLUCOSE,POINT OF CARE 112 MG/DL (70-110)
[2022-11-12 04:21] VITALS: BP 118/59
[2022-11-12] MEDS: LEVOTHYROXINE SODIUM 150 MCG TABLET PO SCH (05:21)
[2022-11-12 06:06] LABS: GLUCOMETER DEV NAME(LOC) 6N.2B; GLUCOSE,POINT OF CARE 117 MG/DL (70-110)
[2022-11-12] MEDS: HEPARIN SODIUM,PORCINE 5,000 UNITS/ML VIAL SQ SCH ×3 (08:00→23:42)
[2022-11-12 08:08] VITALS: BP 99/50
[2022-11-12] MEDS: OMEPRAZOLE 20 MG CAPSULE PO SCH (08:55)
[2022-11-12] MEDS: ACETAMINOPHEN 325 MG TABLET PO PRN (08:55)
[2022-11-12] MEDS: LevETIRAcetam 500 MG TABLET PO SCH ×2 (08:55→20:52)
[2022-11-12] MEDS: NYSTATIN 15 GM POWDER BOTTLE TP SCH (08:56)
[2022-11-12] MEDS: DOCUSATE SODIUM 100 MG CAPSULE PO SCH (08:56)
[2022-11-12] MEDS: ASPIRIN 81 MG CHEWABLE TABLET PO SCH (08:56)
[2022-11-12] MEDS: CLOTRIMAZOLE 1%/BETAMETH DIP 0.05% 15 GM CREAM TP SCH (08:57)
[2022-11-12] MEDS: CHLORHEXIDINE GLUCONATE 0.12% 15 ML UDCUP ORAL RINSE MM SCH ×2 (08:58→20:55)
[2022-11-12] MEDS: LORazepam 2 MG/ML VIAL IVP PRN (09:09)
[2022-11-12] MEDS: ETHYL ALCOHOL 62% ANTISEPTIC NASAL SANITIZER 0.6 ML AMPUL NASAL SCH ×2 (09:26→20:53)
[2022-11-12] MEDS: QUEtiapine FUMARATE 25 MG TABLET PO SCH ×3 (10:15→20:55)
[2022-11-12 12:30] LABS: GLUCOMETER DEV NAME(LOC) 6N.2B; GLUCOSE,POINT OF CARE 124 MG/DL (70-110)
[2022-11-12 15:52] VITALS: BP 140/57
[2022-11-12] MEDS: INSULIN LISPRO 100 UNITS/ML SQ PRN (17:17)
[2022-11-12 19:44] VITALS: BP 129/81
[2022-11-12] MEDS: NIACIN 500 MG TABLET PO SCH (20:53)
[2022-11-12] MEDS: SIMVASTATIN 20 MG TABLET PO SCH (20:53)
[2022-11-12 21:06] LABS: GLUCOMETER DEV NAME(LOC) 6N.1; GLUCOSE,POINT OF CARE 152 MG/DL (70-110)
[2022-11-12] MEDS: INSULIN GLARGINE,HUM.REC.ANLOG 100 UNITS/ML SQ SCH (21:14)
[2022-11-13 02:16] LABS: GLUCOMETER DEV NAME(LOC) 6N.2B; GLUCOSE,POINT OF CARE 134 MG/DL (70-110)
[2022-11-13 04:49] VITALS: BP 113/59
[2022-11-13] MEDS: LEVOTHYROXINE SODIUM 150 MCG TABLET PO SCH (05:30)
[2022-11-13 06:46] LABS: GLUCOMETER DEV NAME(LOC) 6S.1B; GLUCOSE,POINT OF CARE 100 MG/DL (70-110)
[2022-11-13 07:18] VITALS: BP 130/55
[2022-11-13] MEDS: HEPARIN SODIUM,PORCINE 5,000 UNITS/ML VIAL SQ SCH ×3 (08:00→23:19)
[2022-11-13] MEDS: QUEtiapine FUMARATE 25 MG TABLET PO SCH ×2 (08:35→20:13)
[2022-11-13] MEDS: ASPIRIN 81 MG CHEWABLE TABLET PO SCH (08:35)
[2022-11-13] MEDS: OMEPRAZOLE 20 MG CAPSULE PO SCH (08:36)
[2022-11-13] MEDS: DOCUSATE SODIUM 100 MG CAPSULE PO SCH (08:36)
[2022-11-13] MEDS: CHLORHEXIDINE GLUCONATE 0.12% 15 ML UDCUP ORAL RINSE MM SCH ×2 (08:44→20:13)
[2022-11-13] MEDS: NYSTATIN 15 GM POWDER BOTTLE TP SCH (08:45)
[2022-11-13] MEDS: CLOTRIMAZOLE 1%/BETAMETH DIP 0.05% 15 GM CREAM TP SCH (08:45)
[2022-11-13] MEDS: LevETIRAcetam 500 MG TABLET PO SCH ×2 (09:21→20:13)
[2022-11-13] MEDS: ETHYL ALCOHOL 62% ANTISEPTIC NASAL SANITIZER 0.6 ML AMPUL NASAL SCH ×2 (09:25→20:20)
[2022-11-13] MEDS: INSULIN LISPRO 100 UNITS/ML SQ PRN ×2 (12:02→18:18)
[2022-11-13 15:28] VITALS: BP 125/54
[2022-11-13 17:06] LABS: GLUCOMETER DEV NAME(LOC) 6N.2B; GLUCOSE,POINT OF CARE 149 MG/DL (70-110)
[2022-11-13 20:03] VITALS: BP 143/59
[2022-11-13] MEDS: SIMVASTATIN 20 MG TABLET PO SCH (20:13)
[2022-11-13] MEDS: NIACIN 500 MG TABLET PO SCH (20:13)
[2022-11-13] MEDS: INSULIN GLARGINE,HUM.REC.ANLOG 100 UNITS/ML SQ SCH (20:21)
[2022-11-13] MEDS ORDERED: ALBUTEROL SULFATE 2.5 MG/0.5 ML NEB SOLUTION NEB PRN (20:30)
[2022-11-13 23:07] LABS: GLUCOMETER DEV NAME(LOC) 6N.2B; GLUCOSE,POINT OF CARE 173 MG/DL (70-110)
[2022-11-13 23:07] LABS: GLUCOMETER DEV NAME(LOC) 6N.2B; GLUCOSE,POINT OF CARE 140 MG/DL (70-110)
[2022-11-14] VITALS (7 sets, daily range): BP systolic 81–142; BP diastolic 38–80
[2022-11-14] MEDS: LEVOTHYROXINE SODIUM 150 MCG TABLET PO SCH ×3 (06:11→08:12)
[2022-11-14 06:16] LABS: GLUCOMETER DEV NAME(LOC) 6N.2B; GLUCOSE,POINT OF CARE 103 MG/DL (70-110)
[2022-11-14] MEDS: HEPARIN SODIUM,PORCINE 5,000 UNITS/ML VIAL SQ SCH ×2 (08:00→16:00)
[2022-11-14] MEDS: ETHYL ALCOHOL 62% ANTISEPTIC NASAL SANITIZER 0.6 ML AMPUL NASAL SCH ×2 (09:05→21:25)
[2022-11-14] MEDS: NYSTATIN 15 GM POWDER BOTTLE TP SCH (09:05)
[2022-11-14] MEDS: CLOTRIMAZOLE 1%/BETAMETH DIP 0.05% 15 GM CREAM TP SCH (09:05)
[2022-11-14] MEDS: CHLORHEXIDINE GLUCONATE 0.12% 15 ML UDCUP ORAL RINSE MM SCH ×3 (09:05→22:12)
[2022-11-14] MEDS: LevETIRAcetam 500 MG TABLET PO SCH ×2 (09:06→21:25)
[2022-11-14] MEDS: QUEtiapine FUMARATE 25 MG TABLET PO SCH ×2 (09:06→22:14)
[2022-11-14] MEDS: OMEPRAZOLE 20 MG CAPSULE PO SCH (09:06)
[2022-11-14] MEDS: DOCUSATE SODIUM 100 MG CAPSULE PO SCH (09:06)
[2022-11-14] MEDS: ASPIRIN 81 MG CHEWABLE TABLET PO SCH (09:10)
[2022-11-14] MEDS: INSULIN LISPRO 100 UNITS/ML SQ PRN (12:24)
[2022-11-14 14:22] LABS: ABG BASE EXCESS 0.4 mmol/L (-2.0-3.0); ABG CARBOXYHEMOGLOBIN 2.5 % (0.0-1.5); ABG HCO3 22.4 mmol/L (22.0-26.0); ABG METHEMOGLOBIN 0.1 % (0.0-1.5); ABG OXYGEN CONTENT 17.2 mL/dL (15.0-23.0); ABG OXYGEN SATURATION 98.8 % (95.0-98.0); ABG OXYHEMOGLOBIN 96.2 % (94.0-100.0); ABG TOTAL HEMOGLOBIN 12.5 G/dL (12.0-18.0); PO2, ARTERIAL BG 152.2 mmHg (75.0-83.0); SOURCE, BLOOD GAS ARTERIAL; TEMPERATURE, FAHRENHEIT, BG 98.2 FAHREN (96.0-98.6)
[2022-11-14 14:24] LABS: ABG PCO2 120 mmHg (35-45); O2 DEVICE,BLOOD GAS NON REBREATHER (ROOM AIR); SITE, BLOOD GAS LFT RADIAL
[2022-11-14 14:36] LABS: BASOPHILS % (AUTO) 0.3 % (0.0-2.0); HEMATOCRIT 34.7 % (41-53); HEMOGLOBIN 11.6 g/dL (13.5-17.5); LYMPHOCYTES % (AUTO) 6.7 % (22.0-44.0); MEAN CORPUSCULAR HEMOGLOBIN 39.5 pg (26.0-34.0); MEAN CORPUSCULAR HGB CONC 33.3 G/dL (31.0-37.0); MEAN CORPUSCULAR VOLUME 119 fL (80-100); MONOCYTES # (AUTO) 1.9 K/uL (0.1-1.0); MONOCYTES % (AUTO) 13.1 % (2.0-9.0); NEUTROPHILS # (AUTO) 11.3 K/uL (1.8-7.7); NEUTROPHILS % (AUTO) 78.9 % (40.0-70.0); PLATELET COUNT (AUTO) 199 K/uL (150-450); RED BLOOD CELL COUNT(AUTO) 2.93 MIL/uL (4.50-5.90); RED CELL DISTRIBUTION WIDTH 15.9 % (11.5-14.5)
[2022-11-14 14:54] LABS: LACTIC ACID 4.2 mmol/L (0.4-2.0)
[2022-11-14 14:57] LABS: ANION GAP 8 mmol/L (8-16); CALCIUM, TOTAL 8.7 mg/dL (8.8-10.5); CARBON DIOXIDE 31 mmol/L (22-29); CHLORIDE 107 mmol/L (98-107); CREATININE 1.66 mg/dL (0.60-1.30); GLOMERULAR FILTR. RATE CALC 40 mL/min (>60); GLUCOSE,RANDOM 168 mg/dL (70-110); POTASSIUM 4.2 mmol/L (3.5-5.1); SODIUM SERUM 146 mmol/L (136-145); UREA NITROGEN, BLOOD 23 mg/dL (7-18)
[2022-11-14 14:58] LABS: B-TYPE NATRIURETIC PEPTIDE 356 pg/mL (0-100)
[2022-11-14 15:02] LABS: ALANINE AMINOTRANSFERASE 21 U/L (12-78); ALBUMIN 2.6 g/dL (3.4-5.0); ALKALINE PHOSPHATASE 171 U/L (46-116); ASPARTATE AMINOTRANSFERASE 33 U/L (15-37); BILIRUBIN,TOTAL 1.6 mg/dL (0.1-1.0); TOTAL PROTEIN, SERUM 7.4 g/dL (6.4-8.2)
[2022-11-14] MEDS ORDERED: *CLINICAL-CEFEPIME DOSING CLINICAL ONE (16:00)
[2022-11-14] MEDS ORDERED: SODIUM CHLORIDE 0.9% 1,000 ML IV ONE (16:00)
[2022-11-14] MEDS ORDERED: NOREPINEPHRINE 8 MG/D5%-WATER 250 ML IV ONE (16:01)
[2022-11-14 16:07] LABS: APPEARANCE,URINE CLEAR (CLEAR); BILIRUBIN,URINE NEGATIVE (NEGATIVE); GLUCOSE, URINE (UA) NEGATIVE (NEGATIVE); KETONES,URINE NEGATIVE (NEGATIVE); LEUKOCYTE ESTERASE ,URINE NEGATIVE (NEGATIVE); NITRATE,URINE NEGATIVE (NEGATIVE); OCCULT BLOOD,URINE NEGATIVE (NEGATIVE); PROTEIN,URINE NEGATIVE (NEGATIVE); SPECIFIC GRAVITIY, URINE 1.011 (1.003-1.030); UROBILINOGEN,URINE <=1.0 mg/dL (<=1.0)
[2022-11-14] MEDS ORDERED: NOREPINEPHRINE 8 MG/D5%-WATER 250 ML IV PRN (16:15)
[2022-11-14] MEDS ORDERED: CEFEPIME HCL 2 GM in DEXTROSE 5%-WATER 50 ML IV ONE (16:15)
[2022-11-14 16:35] LABS: ABG BASE EXCESS 1.7 mmol/L (-2.0-3.0); ABG CARBOXYHEMOGLOBIN 1.2 % (0.0-1.5); ABG HCO3 25.9 mmol/L (22.0-26.0); ABG METHEMOGLOBIN 0.3 % (0.0-1.5); ABG OXYGEN CONTENT 15.2 mL/dL (15.0-23.0); ABG OXYGEN SATURATION 99.6 % (95.0-98.0); ABG OXYHEMOGLOBIN 98.1 % (94.0-100.0); ABG PCO2 35 mmHg (35-45); ABG PH 7.478 (7.35-7.450); ABG TOTAL HEMOGLOBIN 10.7 G/dL (12.0-18.0); O2 DEVICE,BLOOD GAS VENTILATOR (ROOM AIR); PEEP,BG 5 cm H2O; PO2, ARTERIAL BG 193.7 mmHg (75.0-83.0); SITE, BLOOD GAS LFT RADIAL; SOURCE, BLOOD GAS ARTERIAL; VT, ABG 450 ml
[2022-11-14] MEDS: SODIUM CHLORIDE 0.9% 1,000 ML IV SCH (16:43)
[2022-11-14] MEDS: PROPOFOL 1000 MG/ISO-OSM 100 ML IV PRN (16:54)
[2022-11-14 18:01] LABS: GLUCOMETER DEV NAME(LOC) 6N.2B; GLUCOSE,POINT OF CARE 154 MG/DL (70-110)
[2022-11-14 18:01] LABS: GLUCOMETER DEV NAME(LOC) 6N.2B; GLUCOSE,POINT OF CARE 145 MG/DL (70-110)
[2022-11-14] MEDS: LACTULOSE 20 GM/30 ML SOLUTION UDCUP NG SCH (21:24)
[2022-11-14] MEDS: SIMVASTATIN 20 MG TABLET PO SCH (21:25)
[2022-11-14] MEDS: INSULIN GLARGINE,HUM.REC.ANLOG 100 UNITS/ML SQ SCH (21:35)
[2022-11-14] MEDS: NIACIN 500 MG TABLET PO SCH (22:13)
[2022-11-15] VITALS: BP 109/41
[2022-11-15] MEDS: SODIUM CHLORIDE 0.9% 1,000 ML IV SCH (00:27)
[2022-11-15] MEDS: HEPARIN SODIUM,PORCINE 5,000 UNITS/ML VIAL SQ SCH ×3 (00:27→16:27)
[2022-11-15 00:51] LABS: GLUCOSE,POINT OF CARE 151 MG/DL (70-110)
[2022-11-15 00:51] LABS: GLUCOSE,POINT OF CARE 125 MG/DL (70-110)
[2022-11-15 04:00] VITALS: BP 114/35
[2022-11-15] MEDS: LACTULOSE 20 GM/30 ML SOLUTION UDCUP NG SCH ×3 (05:41→23:23)
[2022-11-15] MEDS: PROPOFOL 1000 MG/ISO-OSM 100 ML IV PRN ×2 (05:44→16:27)
[2022-11-15] MEDS: CEFEPIME HCL 2 GM in DEXTROSE 5%-WATER 50 ML IV SCH ×2 (05:45→17:09)
[2022-11-15 05:51] LABS: BASOPHILS % (AUTO) 0.2 % (0.0-2.0); HEMATOCRIT 29.8 % (41-53); HEMOGLOBIN 10.3 g/dL (13.5-17.5); LYMPHOCYTES # (AUTO) 1.6 K/uL (1.0-4.8); LYMPHOCYTES % (AUTO) 21.2 % (22.0-44.0); MEAN CORPUSCULAR HEMOGLOBIN 40.8 pg (26.0-34.0); MEAN CORPUSCULAR HGB CONC 34.7 G/dL (31.0-37.0); MEAN CORPUSCULAR VOLUME 118 fL (80-100); MONOCYTES # (AUTO) 0.8 K/uL (0.1-1.0); MONOCYTES % (AUTO) 10.5 % (2.0-9.0); NEUTROPHILS # (AUTO) 4.8 K/uL (1.8-7.7); NEUTROPHILS % (AUTO) 66.1 % (40.0-70.0); PLATELET COUNT (AUTO) 110 K/uL (150-450); RED BLOOD CELL COUNT(AUTO) 2.53 MIL/uL (4.50-5.90); RED CELL DISTRIBUTION WIDTH 15.7 % (11.5-14.5)
[2022-11-15 05:59] LABS: CALCIUM, TOTAL 8.1 mg/dL (8.8-10.5); CREATININE 1.58 mg/dL (0.60-1.30); POTASSIUM 3.9 mmol/L (3.5-5.1)
[2022-11-15 08:00] VITALS: BP 113/61
[2022-11-15] MEDS: QUEtiapine FUMARATE 25 MG TABLET PO SCH ×2 (08:13→23:24)
[2022-11-15] MEDS: CHLORHEXIDINE GLUCONATE 0.12% 15 ML UDCUP ORAL RINSE MM SCH ×2 (08:14→21:00)
[2022-11-15] MEDS: OMEPRAZOLE 20 MG CAPSULE PO SCH (08:14)
[2022-11-15] MEDS: ASPIRIN 81 MG CHEWABLE TABLET PO SCH (08:14)
[2022-11-15] MEDS: ETHYL ALCOHOL 62% ANTISEPTIC NASAL SANITIZER 0.6 ML AMPUL NASAL SCH ×2 (08:14→23:26)
[2022-11-15] MEDS: NYSTATIN 15 GM POWDER BOTTLE TP SCH (08:15)
[2022-11-15] MEDS: DOCUSATE SODIUM 100 MG CAPSULE PO SCH (08:15)
[2022-11-15] MEDS: CLOTRIMAZOLE 1%/BETAMETH DIP 0.05% 15 GM CREAM TP SCH (08:16)
[2022-11-15 09:15] LABS: ABG A-A DIFF O2 153.6 mmHg (10-20.0); ABG BASE EXCESS 1.5 mmol/L (-2.0-3.0); ABG CARBOXYHEMOGLOBIN 0.4 % (0.0-1.5); ABG HCO3 25.7 mmol/L (22.0-26.0); ABG METHEMOGLOBIN 0.3 % (0.0-1.5); ABG OXYGEN CONTENT 14.3 mL/dL (15.0-23.0); ABG OXYGEN SATURATION 96.6 % (95.0-98.0); ABG OXYHEMOGLOBIN 95.9 % (94.0-100.0); ABG PCO2 40 mmHg (35-45); ABG PH 7.425 (7.35-7.450); ABG TOTAL HEMOGLOBIN 10.5 G/dL (12.0-18.0); O2 DEVICE,BLOOD GAS VENTILATOR (ROOM AIR); PEEP,BG 5 cm H2O; PO2, ARTERIAL BG 85.1 mmHg (75.0-83.0); SITE, BLOOD GAS LFT RADIAL; SOURCE, BLOOD GAS ARTERIAL; TEMPERATURE, FAHRENHEIT, BG 98.6 FAHREN (96.0-98.6); VT, ABG 450 ml
[2022-11-15] MEDS: LevETIRAcetam 1,000 MG in DEXTROSE 5%-WATER 100 ML IV SCH ×2 (09:26→23:23)
[2022-11-15] MEDS: DEXMEDETOMIDINE HCL 400 MCG in SODIUM CHLORIDE 0.9% 96 ML IV PRN (10:22)
[2022-11-15 12:00] VITALS: BP 95/32
[2022-11-15 15:10] LABS: INR 1.2 (0.9-1.1); PROTHROMBIN TIME 13.1 SEC (9.4-11.6)
[2022-11-15 16:00] VITALS: BP 92/38
[2022-11-15 16:11] LABS: ABG A-A DIFF O2 149.5 mmHg (10-20.0); ABG CARBOXYHEMOGLOBIN 0.7 % (0.0-1.5); ABG HCO3 25.2 mmol/L (22.0-26.0); ABG METHEMOGLOBIN 0.3 % (0.0-1.5); ABG OXYGEN CONTENT 12.7 mL/dL (15.0-23.0); ABG OXYGEN SATURATION 96.4 % (95.0-98.0); ABG OXYHEMOGLOBIN 95.4 % (94.0-100.0); ABG PCO2 44 mmHg (35-45); ABG PH 7.387 (7.35-7.450); ABG TOTAL HEMOGLOBIN 9.4 G/dL (12.0-18.0); O2 DEVICE,BLOOD GAS VENTILATOR (ROOM AIR); PO2, ARTERIAL BG 85.3 mmHg (75.0-83.0); SITE, BLOOD GAS LFT RADIAL; SOURCE, BLOOD GAS ARTERIAL; TEMPERATURE, FAHRENHEIT, BG 97.9 FAHREN (96.0-98.6); VENT MODE, BG Press. Support Vent. (ROOM AIR)
[2022-11-15 16:12] LABS: PEEP,BG 5 cm H2O; PRESSURE SUPPORT, BG 5 cm H2O; SPONTANEOUS VT, BG 346 ml
[2022-11-15] MEDS ORDERED: PHENYLEPHRINE HCL IN 0.9% NACL 400 MCG/10 ML SYRINGE IVP ONE (16:23)
[2022-11-15] MEDS ORDERED: 0.9% SODIUM CHLORIDE 10 ML VIAL IRRIG ONE (16:23)
[2022-11-15] MEDS ORDERED: ROCURONIUM BROMIDE 10 MG/ML 5 ML VIAL IV ONE (16:23)
[2022-11-15 20:00] VITALS: BP 108/36
[2022-11-15] MEDS: INSULIN GLARGINE,HUM.REC.ANLOG 100 UNITS/ML SQ SCH (21:00)
[2022-11-15] MEDS: NIACIN 500 MG TABLET PO SCH (23:23)
[2022-11-15] MEDS: SIMVASTATIN 20 MG TABLET PO SCH (23:23)
[2022-11-16] VITALS: BP 97/44
[2022-11-16] MEDS: HEPARIN SODIUM,PORCINE 5,000 UNITS/ML VIAL SQ SCH ×4 (00:56→23:28)
[2022-11-16] MEDS: ACETAMINOPHEN 325 MG TABLET PO PRN (00:58)
[2022-11-16] MEDS: DEXMEDETOMIDINE HCL 400 MCG in SODIUM CHLORIDE 0.9% 96 ML IV PRN (02:32)
[2022-11-16 04:00] VITALS: BP 87/65
[2022-11-16] MEDS: LACTULOSE 20 GM/30 ML SOLUTION UDCUP NG SCH ×3 (05:15→23:34)
[2022-11-16] MEDS: LEVOTHYROXINE SODIUM 150 MCG TABLET PO SCH (06:30)
[2022-11-16 06:42] LABS: GLUCOSE,POINT OF CARE 102 MG/DL (70-110)
[2022-11-16 06:46] LABS: GLUCOSE,POINT OF CARE 89 MG/DL (70-110)
[2022-11-16 06:46] LABS: GLUCOSE,POINT OF CARE 110 MG/DL (70-110)
[2022-11-16 06:47] LABS: GLUCOSE,POINT OF CARE 97 MG/DL (70-110)
[2022-11-16 06:47] LABS: GLUCOSE,POINT OF CARE 112 MG/DL (70-110)
[2022-11-16] MEDS ORDERED: SODIUM CHLORIDE 0.9% 1,000 ML ONE (06:48)
[2022-11-16] MEDS: CEFEPIME HCL 2 GM in DEXTROSE 5%-WATER 50 ML IV SCH ×2 (06:51→17:12)
[2022-11-16 08:00] VITALS: BP 114/52
[2022-11-16] MEDS: ETHYL ALCOHOL 62% ANTISEPTIC NASAL SANITIZER 0.6 ML AMPUL NASAL SCH ×2 (08:39→21:00)
[2022-11-16] MEDS: LevETIRAcetam 1,000 MG in DEXTROSE 5%-WATER 100 ML IV SCH ×2 (08:39→23:27)
[2022-11-16] MEDS: DOCUSATE SODIUM 100 MG CAPSULE PO SCH (08:40)
[2022-11-16] MEDS: ASPIRIN 81 MG CHEWABLE TABLET PO SCH (08:40)
[2022-11-16] MEDS: OMEPRAZOLE 20 MG CAPSULE PO SCH (08:41)
[2022-11-16] MEDS: CLOTRIMAZOLE 1%/BETAMETH DIP 0.05% 15 GM CREAM TP SCH (08:41)
[2022-11-16] MEDS: NYSTATIN 15 GM POWDER BOTTLE TP SCH (08:41)
[2022-11-16] MEDS: CHLORHEXIDINE GLUCONATE 0.12% 15 ML UDCUP ORAL RINSE MM SCH ×2 (08:41→23:34)
[2022-11-16] MEDS: QUEtiapine FUMARATE 25 MG TABLET PO SCH ×2 (08:41→21:00)
[2022-11-16] MEDS ORDERED: LIDOCAINE/PF 1% 30 ML VIAL ONE (11:55)
[2022-11-16] MEDS ORDERED: FentaNYL CITRATE PF 100 MCG/2 ML VIAL ONE (11:55)
[2022-11-16 12:00] VITALS: BP 101/50
[2022-11-16 16:00] VITALS: BP 123/52
[2022-11-16 18:01] LABS: GLUCOSE,POINT OF CARE 105 MG/DL (70-110)
[2022-11-16 19:15] LABS: GLUCOSE,POINT OF CARE 87 MG/DL (70-110)
[2022-11-16 20:00] VITALS: BP 127/74
[2022-11-16] MEDS: SIMVASTATIN 20 MG TABLET PO SCH (21:00)
[2022-11-16] MEDS: INSULIN GLARGINE,HUM.REC.ANLOG 100 UNITS/ML SQ SCH (21:00)
[2022-11-16] MEDS: NIACIN 500 MG TABLET PO SCH (23:37)
[2022-11-17] VITALS: BP 117/47
[2022-11-17 01:46] LABS: GLUCOSE,POINT OF CARE 87 MG/DL (70-110)
[2022-11-17 04:00] VITALS: BP 131/87
[2022-11-17 06:27] LABS: BASOPHILS % (AUTO) 0.3 % (0.0-2.0); HEMATOCRIT 30.2 % (41-53); HEMOGLOBIN 10.8 g/dL (13.5-17.5); LYMPHOCYTES # (AUTO) 1.1 K/uL (1.0-4.8); LYMPHOCYTES % (AUTO) 22.2 % (22.0-44.0); MEAN CORPUSCULAR HEMOGLOBIN 41.3 pg (26.0-34.0); MEAN CORPUSCULAR HGB CONC 35.6 G/dL (31.0-37.0); MEAN CORPUSCULAR VOLUME 116 fL (80-100); MONOCYTES # (AUTO) 0.4 K/uL (0.1-1.0); MONOCYTES % (AUTO) 7.2 % (2.0-9.0); NEUTROPHILS # (AUTO) 3.4 K/uL (1.8-7.7); NEUTROPHILS % (AUTO) 67.3 % (40.0-70.0)
[2022-11-17 06:52] LABS: PLATELET COUNT (AUTO) 101 K/uL (150-450)
[2022-11-17] MEDS: LACTULOSE 20 GM/30 ML SOLUTION UDCUP NG SCH ×4 (06:52→22:06)
[2022-11-17] MEDS: LEVOTHYROXINE SODIUM 150 MCG TABLET PO SCH (06:52)
[2022-11-17] MEDS: CEFEPIME HCL 2 GM in DEXTROSE 5%-WATER 50 ML IV SCH ×2 (06:52→18:19)
[2022-11-17 06:54] LABS: CALCIUM, TOTAL 8.3 mg/dL (8.8-10.5); CREATININE 1.61 mg/dL (0.60-1.30); POTASSIUM 3.6 mmol/L (3.5-5.1)
[2022-11-17 08:00] VITALS: BP 128/68
[2022-11-17] MEDS: OMEPRAZOLE 20 MG CAPSULE PO SCH (09:00)
[2022-11-17] MEDS: QUEtiapine FUMARATE 25 MG TABLET PO SCH ×2 (09:00→21:00)
[2022-11-17] MEDS: DOCUSATE SODIUM 100 MG CAPSULE PO SCH (09:00)
[2022-11-17] MEDS: ASPIRIN 81 MG CHEWABLE TABLET PO SCH (09:00)
[2022-11-17] MEDS: HEPARIN SODIUM,PORCINE 5,000 UNITS/ML VIAL SQ SCH ×2 (09:07→16:30)
[2022-11-17] MEDS: ETHYL ALCOHOL 62% ANTISEPTIC NASAL SANITIZER 0.6 ML AMPUL NASAL SCH ×2 (09:08→22:05)
[2022-11-17] MEDS: LevETIRAcetam 1,000 MG in DEXTROSE 5%-WATER 100 ML IV SCH ×2 (09:08→22:05)
[2022-11-17] MEDS: CHLORHEXIDINE GLUCONATE 0.12% 15 ML UDCUP ORAL RINSE MM SCH ×2 (09:08→21:00)
[2022-11-17] MEDS: CLOTRIMAZOLE 1%/BETAMETH DIP 0.05% 15 GM CREAM TP SCH (09:09)
[2022-11-17] MEDS: NYSTATIN 15 GM POWDER BOTTLE TP SCH (09:09)
[2022-11-17 11:51] LABS: GLUCOSE,POINT OF CARE 76 MG/DL (70-110)
[2022-11-17 16:00] VITALS: BP 136/65
[2022-11-17 17:41] LABS: GLUCOSE,POINT OF CARE 86 MG/DL (70-110)
[2022-11-17 19:21] LABS: GLUCOSE,POINT OF CARE 91 MG/DL (70-110)
[2022-11-17 20:42] VITALS: BP 129/69
[2022-11-17] MEDS: INSULIN GLARGINE,HUM.REC.ANLOG 100 UNITS/ML SQ SCH (21:00)
[2022-11-17] MEDS: NIACIN 500 MG TABLET PO SCH (21:00)
[2022-11-17] MEDS: SIMVASTATIN 20 MG TABLET PO SCH (21:00)
[2022-11-18 00:06] LABS: GLUCOMETER DEV NAME(LOC) 5N.2C; GLUCOSE,POINT OF CARE 90 MG/DL (70-110)
[2022-11-18] MEDS: HEPARIN SODIUM,PORCINE 5,000 UNITS/ML VIAL SQ SCH ×3 (00:40→17:23)
[2022-11-18 00:58] VITALS: BP 144/53
[2022-11-18] MEDS: LACTULOSE 20 GM/30 ML SOLUTION UDCUP NG SCH ×3 (05:15→21:42)
[2022-11-18 05:43] VITALS: BP 143/61
[2022-11-18] MEDS: LEVOTHYROXINE SODIUM 150 MCG TABLET PO SCH (06:30)
[2022-11-18] MEDS ORDERED: *CLINICAL-LEVOFLOXACIN IVPB DOSING CLINICAL ONE (06:45)
[2022-11-18 07:34] VITALS: BP 134/57
[2022-11-18] MEDS ORDERED: VANCOMYCIN HCL 1.5 GM in DEXTROSE 5%-WATER 250 ML IV SCH (08:00)
[2022-11-18] MEDS: ETHYL ALCOHOL 62% ANTISEPTIC NASAL SANITIZER 0.6 ML AMPUL NASAL SCH ×2 (09:12→21:39)
[2022-11-18] MEDS: OMEPRAZOLE 20 MG CAPSULE PO SCH (09:13)
[2022-11-18] MEDS: QUEtiapine FUMARATE 25 MG TABLET PO SCH ×2 (09:13→21:41)
[2022-11-18] MEDS: ASPIRIN 81 MG CHEWABLE TABLET PO SCH (09:13)
[2022-11-18] MEDS: DOCUSATE SODIUM 100 MG CAPSULE PO SCH (09:14)
[2022-11-18] MEDS: NYSTATIN 15 GM POWDER BOTTLE TP SCH (09:18)
[2022-11-18] MEDS: CLOTRIMAZOLE 1%/BETAMETH DIP 0.05% 15 GM CREAM TP SCH (09:18)
[2022-11-18] MEDS: CHLORHEXIDINE GLUCONATE 0.12% 15 ML UDCUP ORAL RINSE MM SCH ×2 (09:18→21:39)
[2022-11-18] MEDS: LEVOFLOXACIN 750 MG/D5% WATER 150 ML IV SCH (12:26)
[2022-11-18 12:44] VITALS: BP 123/56
[2022-11-18] MEDS: LevETIRAcetam 1,000 MG in DEXTROSE 5%-WATER 100 ML IV SCH (15:37)
[2022-11-18 16:40] VITALS: BP 129/76
[2022-11-18 18:37] LABS: GLUCOMETER DEV NAME(LOC) 5S.2C; GLUCOSE,POINT OF CARE 80 MG/DL (70-110)
[2022-11-18 18:37] LABS: GLUCOMETER DEV NAME(LOC) 5S.2C; GLUCOSE,POINT OF CARE 111 MG/DL (70-110)
[2022-11-18 19:39] VITALS: BP 146/59
[2022-11-18] MEDS: INSULIN GLARGINE,HUM.REC.ANLOG 100 UNITS/ML SQ SCH (21:00)
[2022-11-18] MEDS: NIACIN 500 MG TABLET PO SCH (21:40)
[2022-11-18] MEDS: SIMVASTATIN 20 MG TABLET PO SCH (21:42)
[2022-11-19 00:05] VITALS: BP 147/69
[2022-11-19] MEDS: LevETIRAcetam 1,000 MG in DEXTROSE 5%-WATER 100 ML IV SCH ×3 (00:11→23:34)
[2022-11-19] MEDS: ACETAMINOPHEN 325 MG TABLET PO PRN (03:15)
[2022-11-19 03:44] VITALS: BP 138/65
[2022-11-19] MEDS: LEVOTHYROXINE SODIUM 150 MCG TABLET PO SCH (06:19)
[2022-11-19] MEDS: LACTULOSE 20 GM/30 ML SOLUTION UDCUP NG SCH ×3 (06:19→23:34)
[2022-11-19 07:17] LABS: CALCIUM, TOTAL 8.2 mg/dL (8.8-10.5); CREATININE 1.3 mg/dL (0.60-1.30); POTASSIUM 3.5 mmol/L (3.5-5.1)
[2022-11-19 07:46] VITALS: BP 107/55
[2022-11-19] MEDS: HEPARIN SODIUM,PORCINE 5,000 UNITS/ML VIAL SQ SCH ×4 (08:54→23:34)
[2022-11-19] MEDS: VANCOMYCIN HCL 1 GM/D5% WATER 200 ML IV SCH (08:54)
[2022-11-19] MEDS: OMEPRAZOLE 20 MG CAPSULE PO SCH (08:55)
[2022-11-19] MEDS: ASPIRIN 81 MG CHEWABLE TABLET PO SCH (08:55)
[2022-11-19] MEDS: CHLORHEXIDINE GLUCONATE 0.12% 15 ML UDCUP ORAL RINSE MM SCH ×2 (08:55→20:51)
[2022-11-19] MEDS: QUEtiapine FUMARATE 25 MG TABLET PO SCH ×2 (08:55→20:51)
[2022-11-19] MEDS: DOCUSATE SODIUM 100 MG CAPSULE PO SCH (08:56)
[2022-11-19] MEDS: CLOTRIMAZOLE 1%/BETAMETH DIP 0.05% 15 GM CREAM TP SCH (08:56)
[2022-11-19] MEDS: NYSTATIN 15 GM POWDER BOTTLE TP SCH (08:56)
[2022-11-19] MEDS: ETHYL ALCOHOL 62% ANTISEPTIC NASAL SANITIZER 0.6 ML AMPUL NASAL SCH ×2 (08:56→20:54)
[2022-11-19 11:03] VITALS: BP 113/49
[2022-11-19] MEDS: INSULIN LISPRO 100 UNITS/ML SQ PRN ×2 (11:50→20:56)
[2022-11-19] MEDS: LEVOFLOXACIN 750 MG/D5% WATER 150 ML IV SCH (11:51)
[2022-11-19 15:48] VITALS: BP 119/55
[2022-11-19 18:37] LABS: GLUCOMETER DEV NAME(LOC) 5N.2C; GLUCOSE,POINT OF CARE 108 MG/DL (70-110)
[2022-11-19 18:37] LABS: GLUCOMETER DEV NAME(LOC) 5N.2C; GLUCOSE,POINT OF CARE 85 MG/DL (70-110)
[2022-11-19 18:46] LABS: GLUCOMETER DEV NAME(LOC) 5S.2C; GLUCOSE,POINT OF CARE 86 MG/DL (70-110)
[2022-11-19 18:46] LABS: GLUCOMETER DEV NAME(LOC) 5S.2C; GLUCOSE,POINT OF CARE 150 MG/DL (70-110)
[2022-11-19 20:17] VITALS: BP 121/49
[2022-11-19] MEDS: NIACIN 500 MG TABLET PO SCH (20:51)
[2022-11-19] MEDS: SIMVASTATIN 20 MG TABLET PO SCH (20:51)
[2022-11-19] MEDS: INSULIN GLARGINE,HUM.REC.ANLOG 100 UNITS/ML SQ SCH (20:55)
[2022-11-19 22:31] LABS: GLUCOMETER DEV NAME(LOC) 5S.1B; GLUCOSE,POINT OF CARE 138 MG/DL (70-110)
[2022-11-19 23:06] LABS: GLUCOMETER DEV NAME(LOC) 5S.2C; GLUCOSE,POINT OF CARE 159 MG/DL (70-110)
[2022-11-19] MEDS ORDERED: HYDROCODONE/ACETAMINOPHEN 5-325 MG TABLET PO ONE (23:15)
[2022-11-20 00:15] VITALS: BP 117/57
[2022-11-20 05:34] VITALS: BP 123/53
[2022-11-20] MEDS: LEVOTHYROXINE SODIUM 150 MCG TABLET PO SCH (06:13)
[2022-11-20] MEDS: LACTULOSE 20 GM/30 ML SOLUTION UDCUP NG SCH ×3 (06:13→22:37)
[2022-11-20] MEDS: INSULIN LISPRO 100 UNITS/ML SQ PRN ×3 (06:14→21:29)
[2022-11-20 07:36] VITALS: BP 127/83
[2022-11-20 07:40] LABS: CALCIUM, TOTAL 7.9 mg/dL (8.8-10.5); CREATININE 1.26 mg/dL (0.60-1.30); POTASSIUM 3.9 mmol/L (3.5-5.1)
[2022-11-20] MEDS: HEPARIN SODIUM,PORCINE 5,000 UNITS/ML VIAL SQ SCH ×3 (08:00→23:29)
[2022-11-20] MEDS: CHLORHEXIDINE GLUCONATE 0.12% 15 ML UDCUP ORAL RINSE MM SCH ×2 (08:50→21:27)
[2022-11-20] MEDS: VANCOMYCIN HCL 1 GM/D5% WATER 200 ML IV SCH (08:50)
[2022-11-20] MEDS: ASPIRIN 81 MG CHEWABLE TABLET PO SCH (08:50)
[2022-11-20] MEDS: DOCUSATE SODIUM 100 MG CAPSULE PO SCH (08:50)
[2022-11-20] MEDS: CYANOCOBALAMIN 500 MCG TABLET PO SCH (08:50)
[2022-11-20] MEDS: OMEPRAZOLE 20 MG CAPSULE PO SCH (08:51)
[2022-11-20] MEDS: QUEtiapine FUMARATE 25 MG TABLET PO SCH ×2 (08:51→21:26)
[2022-11-20] MEDS: ETHYL ALCOHOL 62% ANTISEPTIC NASAL SANITIZER 0.6 ML AMPUL NASAL SCH ×2 (08:51→21:25)
[2022-11-20] MEDS: CLOTRIMAZOLE 1%/BETAMETH DIP 0.05% 15 GM CREAM TP SCH (08:52)
[2022-11-20] MEDS: NYSTATIN 15 GM POWDER BOTTLE TP SCH ×2 (08:52→21:26)
[2022-11-20] MEDS: LEVOFLOXACIN 750 MG/D5% WATER 150 ML IV SCH (10:49)
[2022-11-20 12:00] VITALS: BP 132/72
[2022-11-20] MEDS: LevETIRAcetam 1,000 MG in DEXTROSE 5%-WATER 100 ML IV SCH (13:11)
[2022-11-20] MEDS: ACETAMINOPHEN 325 MG TABLET PO PRN (13:11)
[2022-11-20 14:43] VITALS: BP 151/70
[2022-11-20 19:46] VITALS: BP 147/55
[2022-11-20 20:16] LABS: GLUCOMETER DEV NAME(LOC) 5S.2C; GLUCOSE,POINT OF CARE 110 MG/DL (70-110)
[2022-11-20 20:16] LABS: GLUCOMETER DEV NAME(LOC) 5N.2C; GLUCOSE,POINT OF CARE 146 MG/DL (70-110)
[2022-11-20 20:16] LABS: GLUCOMETER DEV NAME(LOC) 5S.2C; GLUCOSE,POINT OF CARE 170 MG/DL (70-110)
[2022-11-20] MEDS: SIMVASTATIN 20 MG TABLET PO SCH (21:25)
[2022-11-20] MEDS: NIACIN 500 MG TABLET PO SCH (21:25)
[2022-11-20] MEDS: INSULIN GLARGINE,HUM.REC.ANLOG 100 UNITS/ML SQ SCH (21:29)
[2022-11-21 00:06] VITALS: BP 133/58
[2022-11-21] MEDS: LEVOFLOXACIN 750 MG/D5% WATER 150 ML IV SCH ×2 (00:47→12:05)
[2022-11-21] MEDS: LevETIRAcetam 1,000 MG in DEXTROSE 5%-WATER 100 ML IV SCH (00:56)
[2022-11-21 01:56] LABS: GLUCOMETER DEV NAME(LOC) 5N.2C; GLUCOSE,POINT OF CARE 160 MG/DL (70-110)
[2022-11-21 05:24] VITALS: BP 132/56
[2022-11-21] MEDS: LEVOTHYROXINE SODIUM 150 MCG TABLET PO SCH (05:32)
[2022-11-21] MEDS: LACTULOSE 20 GM/30 ML SOLUTION UDCUP NG SCH ×3 (05:32→22:15)
[2022-11-21 06:41] LABS: GLUCOMETER DEV NAME(LOC) 5N.2C; GLUCOSE,POINT OF CARE 96 MG/DL (70-110)
[2022-11-21 07:05] LABS: CALCIUM, TOTAL 8.2 mg/dL (8.8-10.5); CREATININE 1.19 mg/dL (0.60-1.30); POTASSIUM 3.9 mmol/L (3.5-5.1); VANCOMYCIN,RANDOM 13.9 mcg/mL (25.0-50.0)
[2022-11-21 07:28] VITALS: BP 119/50
[2022-11-21] MEDS: HEPARIN SODIUM,PORCINE 5,000 UNITS/ML VIAL SQ SCH ×3 (08:00→23:26)
[2022-11-21] MEDS: CYANOCOBALAMIN 500 MCG TABLET PO SCH (09:28)
[2022-11-21] MEDS: ETHYL ALCOHOL 62% ANTISEPTIC NASAL SANITIZER 0.6 ML AMPUL NASAL SCH ×2 (09:28→20:25)
[2022-11-21] MEDS: DOCUSATE SODIUM 100 MG CAPSULE PO SCH (09:28)
[2022-11-21] MEDS: CHLORHEXIDINE GLUCONATE 0.12% 15 ML UDCUP ORAL RINSE MM SCH ×2 (09:28→20:17)
[2022-11-21] MEDS: ACETAMINOPHEN 325 MG TABLET PO PRN (09:28)
[2022-11-21] MEDS: VANCOMYCIN HCL 1.25 GM in DEXTROSE 5%-WATER 250 ML IV SCH (09:29)
[2022-11-21] MEDS: OMEPRAZOLE 20 MG CAPSULE PO SCH (09:29)
[2022-11-21] MEDS: ASPIRIN 81 MG CHEWABLE TABLET PO SCH (09:29)
[2022-11-21] MEDS: QUEtiapine FUMARATE 25 MG TABLET PO SCH ×2 (09:29→20:15)
[2022-11-21] MEDS: CLOTRIMAZOLE 1%/BETAMETH DIP 0.05% 15 GM CREAM TP SCH (09:30)
[2022-11-21] MEDS ORDERED: SODIUM PHOS/SODIUM BIPHOS 133 ML ENEMA PR PRN (11:30)
[2022-11-21] MEDS ORDERED: MAGNESIUM HYDROXIDE SUSPENSION 30 ML UDCUP PO PRN (11:30)
[2022-11-21] MEDS ORDERED: ACETAMINOPHEN 500 MG TABLET PO PRN (11:30)
[2022-11-21 11:31] VITALS: BP 119/44
[2022-11-21] MEDS ORDERED: MELATONIN 5 MG TABLET PO PRN (11:45)
[2022-11-21] MEDS: INSULIN LISPRO 100 UNITS/ML SQ PRN ×2 (12:33→20:24)
[2022-11-21 15:41] VITALS: BP 121/55
[2022-11-21] MEDS: ZIPRASIDONE HCL 80 MG CAPSULE PO SCH (18:03)
[2022-11-21 20:14] VITALS: BP 130/53
[2022-11-21] MEDS: OXcarbazepine 300 MG TABLET PO SCH (20:15)
[2022-11-21] MEDS: NIACIN 500 MG TABLET PO SCH (20:16)
[2022-11-21] MEDS: SIMVASTATIN 20 MG TABLET PO SCH (20:17)
[2022-11-21] MEDS: LevETIRAcetam 500 MG TABLET PO SCH (20:17)
[2022-11-21] MEDS: INSULIN GLARGINE,HUM.REC.ANLOG 100 UNITS/ML SQ SCH (20:22)
[2022-11-21 21:16] LABS: GLUCOMETER DEV NAME(LOC) 5N.2C; GLUCOSE,POINT OF CARE 129 MG/DL (70-110)
[2022-11-21 21:16] LABS: GLUCOMETER DEV NAME(LOC) 5N.2C; GLUCOSE,POINT OF CARE 176 MG/DL (70-110)
[2022-11-21 21:16] LABS: GLUCOMETER DEV NAME(LOC) 5N.2C; GLUCOSE,POINT OF CARE 171 MG/DL (70-110)
[2022-11-22 00:08] VITALS: BP 132/45
[2022-11-22 04:46] VITALS: BP 114/47
[2022-11-22] MEDS: LACTULOSE 20 GM/30 ML SOLUTION UDCUP NG SCH (06:16)
[2022-11-22 06:22] LABS: GLUCOMETER DEV NAME(LOC) 5N.2C; GLUCOSE,POINT OF CARE 102 MG/DL (70-110)
[2022-11-22] MEDS: LEVOTHYROXINE SODIUM 150 MCG TABLET PO SCH (06:36)
[2022-11-22 07:42] LABS: ANION GAP 3 mmol/L (8-16); CALCIUM, TOTAL 8.5 mg/dL (8.8-10.5); CARBON DIOXIDE 33 mmol/L (22-29); CHLORIDE 108 mmol/L (98-107); CREATININE 1.16 mg/dL (0.60-1.30); GLOMERULAR FILTR. RATE CALC > 60 mL/min (>60); GLUCOSE,RANDOM 111 mg/dL (70-110); POTASSIUM 4.1 mmol/L (3.5-5.1); SODIUM SERUM 144 mmol/L (136-145); UREA NITROGEN, BLOOD 15 mg/dL (7-18)
[2022-11-22] MEDS: HEPARIN SODIUM,PORCINE 5,000 UNITS/ML VIAL SQ SCH ×2 (08:00→15:37)
[2022-11-22] MEDS ORDERED: CHOLECALCIFEROL (VIT D3) 1,000 UNITS [25 MCG] TABLET PO SCH (09:00)
[2022-11-22] MEDS ORDERED: [UNRECOGNIZED DRUG - OTHER] PO SCH (09:00)
[2022-11-22] MEDS ORDERED: ASCORBIC ACID 500 MG TABLET PO SCH (09:00)
[2022-11-22] MEDS ORDERED: VITAMIN E 400 UNIT PO SCH (09:00)
[2022-11-22] MEDS: CYANOCOBALAMIN 500 MCG TABLET PO SCH (09:10)
[2022-11-22] MEDS: CHLORHEXIDINE GLUCONATE 0.12% 15 ML UDCUP ORAL RINSE MM SCH ×2 (09:10→20:52)
[2022-11-22] MEDS: ZIPRASIDONE HCL 80 MG CAPSULE PO SCH ×2 (09:10→17:43)
[2022-11-22] MEDS: ETHYL ALCOHOL 62% ANTISEPTIC NASAL SANITIZER 0.6 ML AMPUL NASAL SCH ×2 (09:10→20:52)
[2022-11-22] MEDS: OXcarbazepine 300 MG TABLET PO SCH ×2 (09:11→20:53)
[2022-11-22] MEDS: CALCIUM OYSTER SHELL 250 MG-VIT D3 125 UNITS[3.125MCG] TABLET PO SCH (09:11)
[2022-11-22] MEDS: DOCUSATE SODIUM 100 MG CAPSULE PO SCH (09:11)
[2022-11-22] MEDS: QUEtiapine FUMARATE 25 MG TABLET PO SCH ×2 (09:11→20:53)
[2022-11-22] MEDS: OMEPRAZOLE 20 MG CAPSULE PO SCH (09:11)
[2022-11-22] MEDS: LevETIRAcetam 500 MG TABLET PO SCH ×2 (09:11→20:52)
[2022-11-22] MEDS: ALLOPURINOL 100 MG TABLET PO SCH (09:12)
[2022-11-22] MEDS: MULTIVITAMINS WITH MINERALS, THERAPEUTIC TABLET PO SCH (09:12)
[2022-11-22] MEDS: ASPIRIN 81 MG DR TABLET PO SCH (09:12)
[2022-11-22] MEDS: CLOTRIMAZOLE 1%/BETAMETH DIP 0.05% 15 GM CREAM TP SCH (09:13)
[2022-11-22] MEDS: PANTOPRAZOLE SODIUM 40 MG DR TABLET PO SCH (09:13)
[2022-11-22] MEDS: NYSTATIN 15 GM POWDER BOTTLE TP SCH (09:13)
[2022-11-22] MEDS: VANCOMYCIN HCL 1.25 GM in DEXTROSE 5%-WATER 250 ML IV SCH (09:19)
[2022-11-22 11:21] VITALS: BP 120/50
[2022-11-22] MEDS: LEVOFLOXACIN 750 MG/D5% WATER 150 ML IV SCH (11:38)
[2022-11-22] MEDS: INSULIN LISPRO 100 UNITS/ML SQ PRN ×2 (11:52→17:50)
[2022-11-22 15:37] VITALS: BP 135/62
[2022-11-22] MEDS: LACTULOSE 20 GM/30 ML SOLUTION UDCUP PO SCH (15:37)
[2022-11-22 17:36] LABS: GLUCOMETER DEV NAME(LOC) 5N.2C; GLUCOSE,POINT OF CARE 160 MG/DL (70-110)
[2022-11-22 19:56] LABS: GLUCOMETER DEV NAME(LOC) 5N.2C; GLUCOSE,POINT OF CARE 162 MG/DL (70-110)
[2022-11-22 20:00] VITALS: BP 123/59
[2022-11-22] MEDS: NIACIN 500 MG TABLET PO SCH (20:52)
[2022-11-22] MEDS: SIMVASTATIN 20 MG TABLET PO SCH (20:53)
[2022-11-22] MEDS: INSULIN GLARGINE,HUM.REC.ANLOG 100 UNITS/ML SQ SCH (21:16)
[2022-11-23] VITALS: BP 121/60
[2022-11-23] MEDS: LACTULOSE 20 GM/30 ML SOLUTION UDCUP PO SCH ×2 (00:24→09:04)
[2022-11-23 01:01] LABS: GLUCOMETER DEV NAME(LOC) 5N.2C; GLUCOSE,POINT OF CARE 113 MG/DL (70-110)
[2022-11-23 04:00] VITALS: BP 136/66
[2022-11-23] MEDS: LEVOTHYROXINE SODIUM 150 MCG TABLET PO SCH (06:14)
[2022-11-23] MEDS: ACETAMINOPHEN 325 MG TABLET PO PRN (06:34)
[2022-11-23 07:06] LABS: ANION GAP 3 mmol/L (8-16); CALCIUM, TOTAL 8.4 mg/dL (8.8-10.5); CARBON DIOXIDE 32 mmol/L (22-29); CHLORIDE 107 mmol/L (98-107); CREATININE 1.14 mg/dL (0.60-1.30); GLOMERULAR FILTR. RATE CALC > 60 mL/min (>60); GLUCOSE,RANDOM 107 mg/dL (70-110); POTASSIUM 4.2 mmol/L (3.5-5.1); SODIUM SERUM 142 mmol/L (136-145); UREA NITROGEN, BLOOD 14 mg/dL (7-18)
[2022-11-23] MEDS: HEPARIN SODIUM,PORCINE 5,000 UNITS/ML VIAL SQ SCH ×2 (08:00)
[2022-11-23] MEDS: QUEtiapine FUMARATE 25 MG TABLET PO SCH (08:59)
[2022-11-23] MEDS: MULTIVITAMINS WITH MINERALS, THERAPEUTIC TABLET PO SCH (08:59)
[2022-11-23] MEDS: ZIPRASIDONE HCL 80 MG CAPSULE PO SCH (08:59)
[2022-11-23] MEDS: LevETIRAcetam 500 MG TABLET PO SCH (08:59)
[2022-11-23] MEDS: ASPIRIN 81 MG DR TABLET PO SCH (08:59)
[2022-11-23] MEDS ORDERED: NYSTATIN 30 GM OINTMENT TP SCH (09:00)
[2022-11-23] MEDS: DOCUSATE SODIUM 100 MG CAPSULE PO SCH (09:00)
[2022-11-23] MEDS: PANTOPRAZOLE SODIUM 40 MG DR TABLET PO SCH (09:00)
[2022-11-23] MEDS: OXcarbazepine 300 MG TABLET PO SCH (09:00)
[2022-11-23] MEDS: ALLOPURINOL 100 MG TABLET PO SCH (09:00)
[2022-11-23] MEDS ORDERED: NYSTATIN 15 GM POWDER BOTTLE TP SCH (09:00)
[2022-11-23] MEDS: OMEPRAZOLE 20 MG CAPSULE PO SCH (09:00)
[2022-11-23] MEDS: CHLORHEXIDINE GLUCONATE 0.12% 15 ML UDCUP ORAL RINSE MM SCH (09:01)
[2022-11-23] MEDS: LEVOFLOXACIN 750 MG/D5% WATER 150 ML IV SCH (09:04)
[2022-11-23] MEDS: VANCOMYCIN HCL 1.25 GM in DEXTROSE 5%-WATER 250 ML IV SCH (09:05)
[2022-11-23] MEDS: CALCIUM OYSTER SHELL 250 MG-VIT D3 125 UNITS[3.125MCG] TABLET PO SCH (09:06)
[2022-11-23] MEDS ORDERED: SODIUM CHLORIDE 0.9% 1,000 ML ONE (09:07)
[2022-11-23] MEDS: CLOTRIMAZOLE 1%/BETAMETH DIP 0.05% 15 GM CREAM TP SCH (09:10)
[2022-11-23] MEDS: ETHYL ALCOHOL 62% ANTISEPTIC NASAL SANITIZER 0.6 ML AMPUL NASAL SCH (09:23)
[2022-11-23 09:34] VITALS: BP 117/64
[2022-11-23 11:39] VITALS: BP 129/53
[2022-11-23] MEDS: INSULIN LISPRO 100 UNITS/ML SQ PRN (12:19)
[2022-11-23 18:26] LABS: GLUCOMETER DEV NAME(LOC) 5S.2C; GLUCOSE,POINT OF CARE 196 MG/DL (70-110)
[2022-11-23 18:26] LABS: GLUCOMETER DEV NAME(LOC) 5S.2C; GLUCOSE,POINT OF CARE 98 MG/DL (70-110)
== END 2022-11-23 16:25 | DRG 870 ==
LOC: EMS 18:59 → AHU 21:09 → ICU 10-22 05:11 → 5S 11-05 06:13 → 6S 11-09 22:17 → ICUN 11-14 15:21 → ICU 11-14 17:49 → 5N 11-17 19:10
PROVIDERS: ADMIT Internal Medicine; ATTEND Internal Medicine
PROC: 5A1955Z Respiratory Ventilation, Greater than 96 Consecutive Hours (ICD-10-PCS; principal; 2022-10-21)
PROC: 0BH17EZ Insertion of Endotracheal Airway into Trachea, Via Natural or Artificial Opening (ICD-10-PCS; 2022-10-21)
PROC: 0B9J8ZZ Drainage of Left Lower Lung Lobe, Via Natural or Artificial Opening Endoscopic (ICD-10-PCS; 2022-10-22)
PROC: 0B938ZZ Drainage of Right Main Bronchus, Via Natural or Artificial Opening Endoscopic (ICD-10-PCS; 2022-10-22)
PROC: 0B978ZZ Drainage of Left Main Bronchus, Via Natural or Artificial Opening Endoscopic (ICD-10-PCS; 2022-10-22)
PROC: 0B9F8ZZ Drainage of Right Lower Lung Lobe, Via Natural or Artificial Opening Endoscopic (ICD-10-PCS; 2022-10-22)
PROC: 4A00X4Z Measurement of Central Nervous Electrical Activity, External Approach (ICD-10-PCS; 2022-10-23)
PROC: 0B978ZZ Drainage of Left Main Bronchus, Via Natural or Artificial Opening Endoscopic (ICD-10-PCS; 2022-10-26)
PROC: 0W9B3ZZ Drainage of Left Pleural Cavity, Percutaneous Approach (ICD-10-PCS; 2022-11-02)
PROC: 5A09357 Assistance with Respiratory Ventilation, Less than 24 Consecutive Hours, Continuous Positive Airway Pressure (ICD-10-PCS; 2022-11-13)
PROC: 5A1945Z Respiratory Ventilation, 24-96 Consecutive Hours (ICD-10-PCS; 2022-11-14)
PROC: 0BH17EZ Insertion of Endotracheal Airway into Trachea, Via Natural or Artificial Opening (ICD-10-PCS; 2022-11-14)
PROC: 0B9J8ZZ Drainage of Left Lower Lung Lobe, Via Natural or Artificial Opening Endoscopic (ICD-10-PCS; 2022-11-15)
PROC: 0B9G8ZZ Drainage of Left Upper Lung Lobe, Via Natural or Artificial Opening Endoscopic (ICD-10-PCS; 2022-11-15)
PROC: 0B978ZZ Drainage of Left Main Bronchus, Via Natural or Artificial Opening Endoscopic (ICD-10-PCS; 2022-11-15)
PROC: 5A09357 Assistance with Respiratory Ventilation, Less than 24 Consecutive Hours, Continuous Positive Airway Pressure (ICD-10-PCS; 2022-11-18)
PROC: 5A09357 Assistance with Respiratory Ventilation, Less than 24 Consecutive Hours, Continuous Positive Airway Pressure (ICD-10-PCS; 2022-11-21)
PROC: 5A09357 Assistance with Respiratory Ventilation, Less than 24 Consecutive Hours, Continuous Positive Airway Pressure (ICD-10-PCS; 2022-11-22)
PROC: 5A09357 Assistance with Respiratory Ventilation, Less than 24 Consecutive Hours, Continuous Positive Airway Pressure (ICD-10-PCS; 2022-11-23)
DX: A41.9 Sepsis, unspecified organism (principal); G93.41 Metabolic encephalopathy; J96.01 Acute respiratory failure with hypoxia; J96.02 Acute respiratory failure with hypercapnia; J15.212 Pneumonia due to Methicillin resistant Staphylococcus aureus; J15.5 Pneumonia due to Escherichia coli; E87.1 Hypo-osmolality and hyponatremia; E72.20 Disorder of urea cycle metabolism, unspecified; N17.9 Acute kidney failure, unspecified; R18.8 Other ascites; E44.0 Moderate protein-calorie malnutrition; E87.29 Other acidosis; I13.0 Hypertensive heart and chronic kidney disease with heart failure and stage 1 through stage 4 chronic kidney disease, or unspecified chronic kidney disease; I50.30 Unspecified diastolic (congestive) heart failure; T17.590A Other foreign object in bronchus causing asphyxiation, initial encounter; Z99.11 Dependence on respirator [ventilator] status; N39.0 Urinary tract infection, site not specified; J91.8 Pleural effusion in other conditions classified elsewhere; J98.19 Other pulmonary collapse; J98.11 Atelectasis; Z20.822 Contact with and (suspected) exposure to COVID-19; E03.9 Hypothyroidism, unspecified; N18.30 Chronic kidney disease, stage 3 unspecified; E78.00 Pure hypercholesterolemia, unspecified; G47.33 Obstructive sleep apnea (adult) (pediatric); X58.XXXA Exposure to other specified factors, initial encounter; F32.A Depression, unspecified; K21.9 Gastro-esophageal reflux disease without esophagitis; E83.42 Hypomagnesemia; E87.6 Hypokalemia; Y95 Nosocomial condition; E66.01 Morbid (severe) obesity due to excess calories; R65.20 Severe sepsis without septic shock; E11.22 Type 2 diabetes mellitus with diabetic chronic kidney disease; F41.1 Generalized anxiety disorder; R93.89 Abnormal findings on diagnostic imaging of other specified body structures; G40.909 Epilepsy, unspecified, not intractable, without status epilepticus; D64.9 Anemia, unspecified; D69.6 Thrombocytopenia, unspecified; Z68.38 Body mass index [BMI] 38.0-38.9, adult; Z79.899 Other long term (current) drug therapy; Z79.4 Long term (current) use of insulin; Y93.89 Activity, other specified; Y92.89 Other specified places as the place of occurrence of the external cause; Y99.8 Other external cause status; Z78.1 Physical restraint status; H10.89 Other conjunctivitis
CPT/HCPCS: 31624; 32555; 36245; 36569; 36600; 70450; 70496; 70498; 71045; 71250; 71260; 72193; 74018; 74160; 76937; 76942; 80048; 80053; 80202; 80307; 81001; 81002; 81003; 82043; 82140; 82465; 82570; 82805; 82945; 82948; 82962; 83605; 83615; 83735; 83880; 83930; 83935; 83986; 84100; 84132; 84155; 84156; 84157; 84166; 84300; 84443; 84484; 85025; 85610; 85730; 86850; 86900; 86901; 87015; 87040; 87070; 87075; 87081; 87086; 87101; 87186; 87205; 87206; 87220; 87252; 88112; 89051; 92507; 92523; 92526; 92610; 93005; 93306; 94002; 94003; 94640; 94660; 95816; 97110; 97163; 97166; 97168; 97530; 97535; 99291; G0378; J0456; J0692; J0712; J1265; J1630; J1644; J1815; J1940; J1956; J2060; J2310; J2543; J2704; J3010; J3370; J3475; J3480; J3490; J7030; J7040; J7050; J7060; Q9967; 36415-L1; 36415-TC; J7613; Z7610